=== PATIENT | female | born 1985 | race Caucasian/White ===

== ENCOUNTER 2017-04-05 19:42 | Emergency (ER) | payer MEDICAID ==
[~2017-04-05] VITALS: Ht 177.8 cm; Wt 96.6 kg
[~2017-04-05 19:42] MED LIST: IBP800T PO; INSU100I14 SQ; INSU100I23 SC; INSU100I29 SC; LEVE1U SQ; LEVO500T2 PO; LEVO500T80 PO; PREN1TAB14 PO; RT-ALBUINH INH
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
[2017-04-05 22:25] LABS: BASOPHILS # (AUTO) 0.1 10^3/uL (0.0-0.1); BASOPHILS % (AUTO) 0 % (0-10); EOSINOPHILS # (AUTO) 0.3 10^3/uL (0.0-0.3); EOSINOPHILS % (AUTO) 2 % (0-10); LYMPHOCYTES # (AUTO) 3.4 X 10^3 (1.0-4.0); LYMPHOCYTES % (AUTO) 19 % (12-44); MEAN CORPUSCULAR HEMOGLOBIN 29 PG (25-34); MEAN CORPUSCULAR HGB CONC 35 G/DL (32-36); MEAN CORPUSCULAR VOLUME 84 FL (80-99); MEAN PLATELET VOLUME 9.9 FL (7.4-10.4); MONOCYTES % (AUTO) 6 % (0-12); NEUTROPHILS # (AUTO) 13.2 X 10^3 (1.8-7.8); NEUTROPHILS % (AUTO) 74 % (42-75); PLATELET COUNT 326 10^3/uL (130-400); RED BLOOD COUNT 5.16 10^6/uL (4.35-5.85); RED CELL DISTRIBUTION WIDTH 12.5 % (10.0-14.5); WHITE BLOOD COUNT 17.9 10^3/uL (4.3-11.0)
[2017-04-05 22:43] LABS: ALANINE AMINOTRANSFERASE 20 U/L (0-55); ALBUMIN 4.3 GM/DL (3.2-4.5); ANION GAP 14 MMOL/L (5-14); ASPARTATE AMINO TRANSFERASE 12 U/L (5-34); BAND NEUTROPHILS 2 %; BASOPHILS % (MANUAL) 1 %; BILIRUBIN,TOTAL 0.2 MG/DL (0.1-1.0); BLOOD UREA NITROGEN 11 MG/DL (7-18); BUN/CREATININE RATIO 15; CALCIUM 10.1 MG/DL (8.5-10.1); CARBON DIOXIDE 22 MMOL/L (21-32); CHLORIDE 103 MMOL/L (98-107); CREATININE SERUM 0.73 MG/DL (0.60-1.30); EOSINOPHILS % (MANUAL) 3 %; GFR ESTIMATED > 60; GLUCOSE 94 MG/DL (70-105); LYMPHOCYTES % (MANUAL) 20 %; NEUTROPHILS % (MANUAL) 72 %; POTASSIUM 3.4 MMOL/L (3.6-5.0); SODIUM 139 MMOL/L (135-145); TOTAL PROTEIN 7.8 GM/DL (6.4-8.2)
[2017-04-05 23:02] LABS: BILIRUBIN,URINE NEGATIVE (NEGATIVE); KETONES,URINE 1+ (NEGATIVE); LEUKOCYTE ESTERASE ,URINE 2+ (NEGATIVE); NITRITE,URINE NEGATIVE (NEGATIVE); PH,URINE 6 (5-9); PROTEIN,URINE 2+ (NEGATIVE); UROBILINOGEN,URINE 4 MG/DL (NORMAL)
[2017-04-06] MEDS ORDERED: CIPR500T4 PO (00:16)
[2017-04-06] MEDS ORDERED: LEVOFLOXACIN 750 MG TAB (LEVAQUIN) PO ONE (00:30)
[2017-04-06 00:36] VITALS: BP 116/80
== END 2017-04-06 00:40 | disposition home or self-care (01) ==
LOC: EDUNIT# 19:42 → ER 19:45
DX: N39.0 Urinary tract infection, site not specified (principal); E86.9 Volume depletion, unspecified; J45.909 Unspecified asthma, uncomplicated; E78.00 Pure hypercholesterolemia, unspecified; I10 Essential (primary) hypertension; E11.9 Type 2 diabetes mellitus without complications; F17.210 Nicotine dependence, cigarettes, uncomplicated; Z94.5 Skin transplant status; Z98.51 Tubal ligation status; Z87.59 Personal history of other complications of pregnancy, childbirth and the puerperium; Z79.4 Long term (current) use of insulin; Z79.84 Long term (current) use of oral hypoglycemic drugs
CPT/HCPCS: 36415; 80053; 81000; 84703; 85007; 85027; 86141; 87070; 87088; 87210; 87491; 87591

== ENCOUNTER 2017-12-26 09:08 | Inpatient (IN) | payer MEDICAID ==
[~2017-12-26] VITALS: Ht 177.8 cm; Wt 95.3 kg
[~2017-12-26 09:08] MED LIST changes: +CIPR500T4 PO
[2017-12-26] MEDS ORDERED: LEVO750T39 PO (09:15)
[2017-12-26] MEDS ORDERED: ONDA4TAB10 (09:15)
[2017-12-26] MEDS ORDERED: NS IV 1000 ML 1,000 ML IV ONE (09:16)
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
[2017-12-26 09:38] LABS: BASOPHILS % (AUTO) 0 % (0-10); EOSINOPHILS % (AUTO) 0 % (0-10); HEMATOCRIT 40 % (35-52); HEMOGLOBIN 13.8 G/DL (11.5-16.0); LYMPHOCYTES # (AUTO) 0.4 X 10^3 (1.0-4.0); LYMPHOCYTES % (AUTO) 4 % (12-44); MEAN CORPUSCULAR HEMOGLOBIN 29 PG (25-34); MEAN CORPUSCULAR HGB CONC 35 G/DL (32-36); MEAN CORPUSCULAR VOLUME 84 FL (80-99); MONOCYTES # (AUTO) 0.6 X 10^3 (0.0-1.0); MONOCYTES % (AUTO) 5 % (0-12); NEUTROPHILS % (AUTO) 91 % (42-75); PLATELET COUNT 188 10^3/uL (130-400); RED BLOOD COUNT 4.74 10^6/uL (4.35-5.85); RED CELL DISTRIBUTION WIDTH 12.8 % (10.0-14.5); WHITE BLOOD COUNT 12.1 10^3/uL (4.3-11.0)
[2017-12-26 09:48] LABS: INR 1.2 (0.8-1.4); PROTHROMBIN TIME PATIENT 14.9 SEC (12.2-14.7)
[2017-12-26 09:51] LABS: BILIRUBIN,URINE NEGATIVE (NEGATIVE); CLARITY,URINE SLIGHTLY CLOUDY; COLOR,URINE YELLOW; GLUCOSE, URINE (UA) 4+ (NEGATIVE); KETONES,URINE 3+ (NEGATIVE); LEUKOCYTE ESTERASE ,URINE 2+ (NEGATIVE); NITRITE,URINE NEGATIVE (NEGATIVE); PH,URINE 6 (5-9); PROTEIN,URINE NEGATIVE (NEGATIVE); UROBILINOGEN,URINE NORMAL (NORMAL)
[2017-12-26 09:55] LABS: ALANINE AMINOTRANSFERASE 22 U/L (0-55); ALBUMIN 3.9 GM/DL (3.2-4.5); ALKALINE PHOSPHATASE 94 U/L (40-136); BUN/CREATININE RATIO 16; CALCIUM 9.3 MG/DL (8.5-10.1); CARBON DIOXIDE 23 MMOL/L (21-32); CHLORIDE 94 MMOL/L (98-107); CREATININE SERUM 0.92 MG/DL (0.60-1.30); GFR ESTIMATED > 60; GLUCOSE 291 MG/DL (70-105); POTASSIUM 4.2 MMOL/L (3.6-5.0); SODIUM 130 MMOL/L (135-145); TOTAL PROTEIN 7.5 GM/DL (6.4-8.2)
[2017-12-26] MEDS ORDERED: inSUlin (REGULAR) HUMAN 1 UNIT/0.01 ML (CHARGE PER UNIT) IV STA (10:04)
[2017-12-26 10:21] LABS: BAND NEUTROPHILS 26 %; BASOPHILS % (MANUAL) 0 %; EOSINOPHILS % (MANUAL) 0 %; LYMPHOCYTES % (MANUAL) 1 %; MONOCYTES % (MANUAL) 5 %; NEUTROPHILS % (MANUAL) 68 %; RBC MORPH NORMAL
--- NOTE | 2017-12-26 10:22 | Diagnostic Imaging Report ---
INDICATION: Cough, nausea, emesis and dizziness. Portable upright AP view of the chest is obtained. Comparison is made to study of 11/21/2015. FINDINGS: Heart size and pulmonary vascularity are within normal limits, and the lungs are clear, bilaterally. IMPRESSION: Unremarkable chest. Dictated by: Dictated on workstation # [id number]
[2017-12-26 10:31] LABS: BACTERIA,URINE TRACE /HPF; RBC,URINE 0-2 /HPF; YEAST,URINE FEW /HPF
[2017-12-26] MEDS ORDERED: MILK OF MAGNESIA 400 MG/5 ML 30 ML UDC PO PRN (12:15)
[2017-12-26] MEDS ORDERED: MELATONIN 3 MG TABLET PO PRN (12:15)
[2017-12-26] MEDS ORDERED: ONDANSETRON 4 MG/2 ML (SDV) Z0FRAN IV PRN (12:15)
[2017-12-26] MEDS ORDERED: ANTACID SUSP 30 ML UDC (MYLANTA) PO PRN (12:15)
--- OUTSIDE RECORDS SUMMARY | 2017-12-26 12:17 | XMS REPORT ---
Author Author Jin KATHY [facility] Address [address] [place] [address] Care Team Providers Care Reference Assistant Name Role Phone clintonMARLENA MilliganY Unavailable PROBLEMS Type Condition ICD9-CM Code [id number] Code Onset Dates Condition Status SNOMED Code Problem Depressive disorder, not elsewhere classified 311 Active 10033782 Problem Anxiety state, unspecified 300.00 Active 085050666 Problem Posttraumatic stress disorder 309.81 Active 05258216 Problem Depressive disorder, not elsewhere classified F32.9 Active 21874512 Problem Social phobia F40.10 Active 86092860 Problem Diabetes mellitus without mention of complication, type II or unspecified type, not stated as uncontrolled 250.00 Active 629578862 Problem Diabetes mellitus without mention of complication, type II or unspecified type, uncontrolled 250.02 Active 907449059 Problem Diabetes E11.9 Active 50005724 Problem Major depressive disorder, recurrent episode, moderate 296.32 Active 56615475 Problem Supervision of with other poor obstetric history V23.49 Active Problem Supervision of with history of pre-term labor V23.41 Active 970841623 Problem Previous delivery, unspecified as to episode of care or not applicable 654.20 Active 159283269 Problem Unspecified high-risk V23.9 Active 87946129 Problem Tobacco use disorder complicating , childbirth, or the puerperium, unspecified as to episode of care or not applicable 649.00 Active ALLERGIES No Information SOCIAL HISTORY Never Assessed PLAN OF CARE VITAL SIGNS MEDICATIONS Medication Instructions Dosage Frequency Start Date End Date Duration Status Minipress 2 MG Orally at bedtime 1 capsule 30 days Active RESULTS No Results PROCEDURES No Known procedures IMMUNIZATIONS No Known Immunizations MEDICAL (GENERAL) HISTORY Type Description Date Medical History Depression Medical History Anxiety Medical History Insomnia Medical History Mood Disorder Surgical History C section Surgical History Skin graph Hospitalization History Surgery/Child
--- OUTSIDE RECORDS SUMMARY | 2017-12-26 12:17 | XMS REPORT | Clinical Summary ---
Author Author [facility] Organization [facility] Address Unknown Phone Unavailable Care Team Providers Care Storage Battery Tester Name Role Phone Ian Jason JC PCP Source Comments Some departments are not documenting in the electronic medical record. If you do not see the information that you expected, contact Release of Information in the Health Information Management department at [phone] for further assistance in locating additional records.[facility] Allergies Active Allergy Reactions Severity Noted Date Comments Nitrofurantoin EDEMA Medium 09/01/2017 Monohyd/M-Cryst Metformin DIARRHEA Low 09/01/2017 Penicillins UNKNOWN Low 09/01/2017 Reaction as a child Current Medications Prescription Sig. Disp. Refills Start End Date Status Date lisinopril (PRINIVIL; Take 2.5 mg by mouth Active ZESTRIL) 5 mg tablet daily. estradiol (ESTRACE) 1 mg Take 1 mg by mouth daily. Active tablet fenofibrate Take 48 mg by mouth Active nanocrystallized (TRICOR) daily. Take with food. 48 mg tablet busPIRone (BUSPAR) 10 mg Take 10 mg by mouth three Active tablet times daily. simvastatin (ZOCOR) 20 mg Take 20 mg by mouth at Active tablet bedtime daily. sitaGLIPtin (JANUVIA) 100 Take 100 mg by mouth Active mg tab tablet daily. exenatide microspheres Inject 2 mg under the Active ER(+) (BYDUREON) 2 mg skin every 7 days. injection insulin degludec 100 Inject 35 Units under the Active unit/mL (3 mL) inpn skin at bedtime daily. insulin aspart (NOVOLOG Inject 5 Units under the Active FLEXPEN) 100 unit/mL skin three times daily injection PEN with meals. ALPRAZolam (XANAX) 0.5 mg Take 0.5 mg by mouth at Active tablet bedtime as needed for Anxiety. loratadine (CLARITIN) 10 Take 10 mg by mouth every Active mg tablet morning. fluticasone (FLONASE) 50 Apply to each nostril as Active mcg/actuation nasal spray directed daily. Shake bottle gently before using. 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[employer] Pulse 121 09/01/2017 1:12 PM [employer] Temperature - - Respiratory Rate - - Oxygen Saturation - - Inhaled Oxygen - - Concentration Weight 91.9 kg (202 lb 9.6 oz) 09/01/2017 1:12 PM [employer] Height 177.8 cm (5' 10") 09/01/2017 1:12 PM [employer] Body Mass Index 29.07 09/01/2017 1:12 PM 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
--- OUTSIDE RECORDS SUMMARY | 2017-12-26 12:17 | XMS REPORT ---
Author Author KATHY Abdi [facility] Address [address] [place] [address] Care Team Providers Care Garment Turner Name Role Phone clintonChantellJESSMARLENAY Unavailable PROBLEMS Type Condition ICD9-CM Code [id number] Code Onset Dates Condition Status SNOMED Code Problem Posttraumatic stress disorder 309.81 Active 27404232 Problem Diabetes mellitus without mention of complication, type II or unspecified type, uncontrolled 250.02 Active 160509419 Problem Anxiety state, unspecified 300.00 Active 273027150 Problem Post-traumatic stress disorder, chronic F43.12 Active 29941167 Problem Depressive disorder, not elsewhere classified F32.9 Active 04871352 Problem Major depressive disorder, recurrent episode, moderate 296.32 Active 72599581 Problem Diabetes mellitus without mention of complication, type II or unspecified type, not stated as uncontrolled 250.00 Active 733854604 Problem Social phobia F40.10 Active 27165449 Problem Diabetes E11.9 Active 29426480 Problem Supervision of with history of pre-term labor V23.41 Active 160503646 Problem Previous delivery, unspecified as to episode of care or not applicable 654.20 Active 068207756 Problem Unspecified high-risk V23.9 Active 57237125 Problem Tobacco use disorder complicating , childbirth, or the puerperium, unspecified as to episode of care or not applicable 649.00 Active Problem Supervision of with other poor obstetric history V23.49 Active Problem Depressive disorder, not elsewhere classified 311 Active 98758780 ALLERGIES No Information SOCIAL HISTORY Never Assessed PLAN OF CARE VITAL SIGNS MEDICATIONS Medication Instructions Dosage Frequency Start Date End Date Duration Status Xanax 0.5 MG Orally Twice a day prn anxiety 1 tablet 30 days Active RESULTS No Results PROCEDURES No Known procedures IMMUNIZATIONS No Known Immunizations MEDICAL (GENERAL) HISTORY Type Description Date Medical History Depression Medical History Anxiety Medical History Insomnia Medical History Mood Disorder Medical History DM II Medical History hypercholesterolemia Surgical History C section Surgical History Skin graph Surgical History hysterectomy 04/2017 Hospitalization History Surgery/Child
--- OUTSIDE RECORDS SUMMARY | 2017-12-26 12:17 | XMS REPORT ---
Author Author Jin KATHY [facility] Address [address] [place] [address] Care Team Providers Care Airport Operations Officer Name Role Phone clintonMARLENA MilliganY Unavailable PROBLEMS Type Condition ICD9-CM Code [id number] Code Onset Dates Condition Status SNOMED Code Problem Depressive disorder, not elsewhere classified 311 Active 45122822 Problem Anxiety state, unspecified 300.00 Active 456738330 Problem Posttraumatic stress disorder 309.81 Active 69371499 Problem Depressive disorder, not elsewhere classified F32.9 Active 90822270 Problem Social phobia F40.10 Active 56220104 Problem Diabetes mellitus without mention of complication, type II or unspecified type, not stated as uncontrolled 250.00 Active 779482674 Problem Diabetes mellitus without mention of complication, type II or unspecified type, uncontrolled 250.02 Active 327496555 Problem Diabetes E11.9 Active 37770137 Problem Major depressive disorder, recurrent episode, moderate 296.32 Active 85645484 Problem Supervision of with other poor obstetric history V23.49 Active Problem Supervision of with history of pre-term labor V23.41 Active 804689905 Problem Previous delivery, unspecified as to episode of care or not applicable 654.20 Active 909356225 Problem Unspecified high-risk V23.9 Active 34030170 Problem Tobacco use disorder complicating , childbirth, or the puerperium, unspecified as to episode of care or not applicable 649.00 Active ALLERGIES Substance Reaction Event Type Date Status Penicillamine Unknown Drug Allergy Sep, Active Macrobid Unknown Drug Allergy Sep, Active Metformin Unknown Drug Allergy Sep, Active Amaryl 4 Mg Tablet diahrea Non Drug Allergy Sep, Active Zoloft 50 Mg Tablet headache Non Drug Allergy Sep, Active SOCIAL HISTORY Never Assessed PLAN OF CARE Activity Details Follow Up 3 Months Reason: VITAL SIGNS Height 69 in 2016-10-03 Weight 213.1 lbs 2016-10-03 Heart Rate 108 bpm 2016-10-03 Respiratory Rate 20 2016-10-03 BMI 31.47 kg/m2 2016-10-03 Blood pressure systolic 112 mmHg 2016-10-03 Blood pressure diastolic 84 mmHg 2016-10-03 MEDICATIONS Medication Instructions Dosage Frequency Start Date End Date Duration Status Bydureon 2 MG Subcutaneous once weekly I injection Active Xanax 0.5 MG Orally Twice a day prn anxiety 1 tablet 30 days Active Neurontin 100 MG Orally 2 times a day 1 capsule 12h 30 days Active Rexulti 1 MG Orally Once a day 1 tablet 24h 30 days Active BusPIRone HCl 10 MG Orally 2 times a day 1 tablet 12h 30 days Active NovoLog Mix 70/30 (70-30) 100 UNIT/ML Active Simvastatin 20 MG Orally Once a day 1 tablet in the evening 24h Active Levemir 100 UNIT/ML Subcutaneous 2 times a day 50 units 12h Active Januvia 100 MG Orally Once a day 1 tablet 24h Active Minipress 2 MG Orally at bedtime 1 capsule Active RESULTS No Results PROCEDURES No Known procedures IMMUNIZATIONS No Known Immunizations MEDICAL (GENERAL) HISTORY Type Description Date Medical History Depression Medical History Anxiety Medical History Insomnia Medical History Mood Disorder Surgical History C section Surgical History Skin graph Hospitalization History Surgery/Child
--- OUTSIDE RECORDS SUMMARY | 2017-12-26 12:17 | XMS REPORT | Continuity of Care Document ---
Author Author [employer] [facility] Address Unknown Phone Unavailable Care Team Providers Care Visual Merchandise Manager Name Role Phone [employer] Unavailable Unavailable Problems Medications Allergies, Adverse Reactions, Alerts Immunizations Results Vital Signs Encounters Location Location Details Encounter Type Encounter Number Reason For Visit Attending Provider ADM Date DC Date Status Source O STEPHEN IGLESIAS 12/31/2017 Active [facility] Procedures Plan of Care Social History Assessment and Plan Family History Advance Directives Functional Status
--- OUTSIDE RECORDS SUMMARY | 2017-12-26 12:18 | XMS REPORT ---
Author Author BARBIE LOTT Organization [facility] Address [address] [place] [address] Care Team Providers Care Boot And Shoe Repairman Name Role Phone BARBIE LOTT Unavailable PROBLEMS Type Condition ICD9-CM Code [id number] Code Onset Dates Condition Status SNOMED Code Problem Depressive disorder, not elsewhere classified 311 Active 17969554 Problem Anxiety state, unspecified 300.00 Active 095385030 Problem Posttraumatic stress disorder 309.81 Active 89088171 Problem Depressive disorder, not elsewhere classified F32.9 Active 22788366 Problem Social phobia F40.10 Active 18165275 Problem Diabetes mellitus without mention of complication, type II or unspecified type, not stated as uncontrolled 250.00 Active 941182467 Problem Diabetes mellitus without mention of complication, type II or unspecified type, uncontrolled 250.02 Active 439803291 Problem Diabetes E11.9 Active 23832233 Problem Major depressive disorder, recurrent episode, moderate 296.32 Active 67028235 Problem Supervision of with other poor obstetric history V23.49 Active Problem Supervision of with history of pre-term labor V23.41 Active 005284684 Problem Previous delivery, unspecified as to episode of care or not applicable 654.20 Active 211149092 Problem Unspecified high-risk V23.9 Active 39494569 Problem Tobacco use disorder complicating , childbirth, or the puerperium, unspecified as to episode of care or not applicable 649.00 Active ALLERGIES Unknown Allergies SOCIAL HISTORY No smoking Hx information available PLAN OF CARE VITAL SIGNS MEDICATIONS Medication Instructions Dosage Frequency Start Date End Date Duration Status Minipress Active BusPIRone HCl Active Neurontin Active Xanax Active Rexulti Active RESULTS No Results PROCEDURES Procedure Date Ordered Related Diagnosis Body Site Psychotherapy, patient &/family, 30 minutes, established patient Sep 19, 2016 IMMUNIZATIONS No Known Immunizations
--- OUTSIDE RECORDS SUMMARY | 2017-12-26 12:18 | XMS REPORT ---
Author Author Jin KATHY [facility] Address [address] [place] [address] Care Team Providers Care C.O.D. Audit Clerk Name Role Phone KATHY Abdi Unavailable PROBLEMS Type Condition ICD9-CM Code KTU40-CN Code Onset Dates Condition Status SNOMED Code Problem Posttraumatic stress disorder 309.81 Active 98963833 Problem Diabetes mellitus without mention of complication, type II or unspecified type, uncontrolled 250.02 Active 636557725 Problem Anxiety state, unspecified 300.00 Active 770741489 Problem Post-traumatic stress disorder, chronic F43.12 Active 05651872 Problem Depressive disorder, not elsewhere classified F32.9 Active 82492424 Problem Major depressive disorder, recurrent episode, moderate 296.32 Active 69416333 Problem Diabetes mellitus without mention of complication, type II or unspecified type, not stated as uncontrolled 250.00 Active 307048400 Problem Social phobia F40.10 Active 51885423 Problem Diabetes E11.9 Active 88478290 Problem Supervision of with history of pre-term labor V23.41 Active 342271929 Problem Previous delivery, unspecified as to episode of care or not applicable 654.20 Active 614260565 Problem Unspecified high-risk V23.9 Active 03334740 Problem Tobacco use disorder complicating , childbirth, or the puerperium, unspecified as to episode of care or not applicable 649.00 Active [id number] Problem Supervision of with other poor obstetric history V23.49 Active 696935031 Problem Depressive disorder, not elsewhere classified 311 Active 67208662 ALLERGIES Substance Reaction Event Type Date Status Penicillamine Unknown Drug Allergy Jan, Active Macrobid Unknown Drug Allergy Jan, Active Metformin Unknown Drug Allergy Jan, Active Amaryl 4 Mg Tablet diahrea Non Drug Allergy Jan, Active Zoloft 50 Mg Tablet headache Non Drug Allergy Jan, Active ENCOUNTERS Encounter Location Date Diagnosis [facility] [address] [address] Oct, [facility] [address] Jun, [facility] [address] [address] May, Post-traumatic stress disorder, chronic F43.12 [facility] [id number] [place] [address]- [address]78 Jan, Chronic posttraumatic stress disorder F43.12 [facility] [address] [address] Jan, [facility] [id number] [place] [address] 681469- 2086 December, [facility] [id number] [place] [address]- 8647 December, Chronic posttraumatic stress disorder F43.12 [facility] [address] [address] December, [facility] [id number] [place] [address] 052875- [address]40 Nov, [facility] [address] [address] Sep, Chronic posttraumatic stress disorder F43.12 [facility] [address] [address] Sep, Chronic posttraumatic stress disorder F43.12 [facility] [address] [address] Aug, Social phobia F40.10 and Depressive disorder, not elsewhere classified F32.9 [facility] [address] [address] 31 Oct, 2015 [facility] [address] [address] 14 Oct, 2015 Diabetes E11.9 [facility] [place] [facility] [address] [id number] [place] [address] 6[address] 14 Nov, 2014 [facility] [place] [facility] [address] [id number] [place] [address]- 2111 13 Nov, 2014 [facility] [place] [facility] [address] [facility] [id number] [place] [address]- 5410 18 Oct, 2014 [facility] [place] [facility] [address] [id number] [place] [address]- 1238 18 Oct, 2014 [facility] [place] [facility] [address] [id number] [place] [address]- 2281 13 Oct, 2014 [facility] [place] [facility] [address] [facility] [id number] [place] [address]- 0266 13 Oct, 2014 [facility] [place] [facility] [address] [facility] [id number] [place] [address]- 8343 11 Oct, 2014 [facility] [place] [facility] [address] [facility] [id number] [place] [address]- 4424 11 Oct, 2014 [facility] [place] [facility] [address] [facility] [id number] [place] [address]- 0809 17 Sep, 2014 [facility] [place] [facility] [address] [facility] [id number] [place] [address]- 3344 17 Sep, 2014 [facility] [place] [facility] [address] [facility] [id number] [address] 4[address] 13 Sep, 2014 [facility] [place] [facility] [address] [facility] [id number] [address]- 3[address] 13 Sep, 2014 [facility] [place] [facility] [address] [facility] [id number] [place] [address]- 7322 11 Sep, 2014 [facility] [place] [facility] [address] [facility] [id number] [place] [address]- 3632 11 Sep, 2014 [facility] [place] [facility] [address] [facility] [id number] [place] [address]- 1029 03 Sep, 2014 [facility] [place] [facility] [address] [id number] [place] [address]- 4376 03 Sep, 2014 [facility] [place] [facility] [address] [id number] [place] [address]- 6726 Aug, [facility] [place] [facility] [address] [id number] [place] [address]- 4816 Aug, [facility] [place] [facility] [address] [id number] [place] [address]- 7467 16 Aug, 2014 [facility] [place] [facility] [address] [id number] [place] [address]- 3955 16 Aug, 2014 [facility] [place] [facility] [address] [id number] [place] [address]- 7870 Aug, [facility] [place] [facility] [address] [id number] [place] [address]- 6472 Aug, [facility] [place] [facility] [address] [id number] [place] [address]- 9323 Aug, [facility] [place] [facility] [address] [id number] [place] [address]- 6207 Aug, [facility] [place] [facility] [address] [id number] [place] [address]- 0446 Aug, [facility] [place] [facility] [address] [id number] [place] [address]- 7759 Aug, [facility] [place] [facility] [address] [id number] [place] [address]- 8061 Aug, [facility] [place] [facility] [address] [id number] [place] [address]- 8238 Aug, [facility] [place] [facility] [address] [id number] [place] [address]- 0279 Jul, [facility] [place] [facility] [address] [id number] [place] [address]- 3936 Jul, [facility] [place] [facility] [address] [id number] [place] [address]- 4485 Jul, [facility] [place] [facility] [address] [id number] [place] [address]- 6291 Jul, [facility] [place] [facility] [address] [id number] [place] [address]- 2640 Jun, [facility] [place] [facility] [address] [id number] [place] [address] Jun, [facility] [place] [facility] [address] [id number] [place] [address]- 1049 Jun, [facility] [place] [facility] [address] [id number] [place] [address]- 8016 Jun, [facility] [place] [facility] [address] [id number] [place] [address]- 0985 Jun, [facility] [place] [facility] [address] [id number] [place] [address]- 3462 May, [facility] [place] [facility] [address] [id number] [place] [address]- 7605 15 May, 2014 [facility] [place] [facility] [address] [id number] [place] [address]- 1110 May, [facility] [place] [facility] [address] [id number] [address]- 0323 May, [facility] [place] [facility] [address] [id number] [address]- 5286 10 May, 2014 [facility] [place] [facility] [address] [id number] [place] [address]- 9342 10 May, 2014 [facility] [place] [facility] [address] [id number] [place] [address]- 0854 10 May, 2014 [facility] [place] [facility] [address] [id number] [place] [address]- 7546 10 May, 2014 [facility] [place] [facility] [address] [id number] [place] [address]- 2899 09 May, 2014 [facility] [place] [facility] [address] [id number] [place] [address]- 3873 May, [facility] [place] [facility] [address] [id number] [place] [address]- 0935 Apr, [facility] [place] [facility] [address] [id number] [place] [address]- 7756 Apr, [facility] [place] [facility] [address] [id number] [place] [address]- 4581 Mar, [facility] [place] [facility] [address] [id number] [place] [address]- 8366 Mar, [facility] [place] [facility] [address] [id number] [place] [address]- 2780 Feb, [facility] [place] [facility] [address] [id number] [place] [address]- 0537 Feb, [facility] [place] [facility] [address] [id number] [place] [address]- 2961 Feb, [facility] [place] [facility] [address] [id number] [place] [address]- 3812 Feb, [facility] [place] [facility] [address] [id number] [place] [address]- 1815 Feb, [facility] [place] [facility] [address] [id number] [place] [address]- 5807 Feb, [facility] [place] [facility] [address] [id number] [place] [address]- 1937 Jan, [facility] [place] [facility] [address] [id number] [place] [address]- 1418 Jan, [facility] [place] [facility] [address] [id number] [place] [address]- 2089 Jan, [facility] [place] [facility] [address] [id number] [place] [address]- 8171 Jan, [facility] [place] [facility] [address] [id number] [place] [address]- 1890 December, [facility] [place] [facility] [address] [id number] [place] [address]- 8645 December, [facility] [place] [facility] [address] [id number] [place] [address]- 5525 December, [facility] [place] [facility] [address] [id number] [place] [address]- 2908 Nov, [facility] [place] [facility] [address] [id number] [place] [address]- 0672 Oct, [facility] [place] [facility] [address] [id number] [place] [address]- 6647 Oct, [facility] [place] [facility] [address] [id number] [place] [address]- 6120 Oct, [facility] [place] [facility] [address] [id number] [place] [address]- 9265 Oct, [facility] [place] [facility] [address] [id number] [place] [address]- 1951 Oct, [facility] [place] [facility] [address] [id number] [place] [address]- 8967 Oct, [facility] [place] [facility] [address] [id number] [place] [address]- 3238 Oct, [facility] [place] [facility] [address] [id number] [place] [address]- 2404 Oct, [facility] [place] [facility] [address] [id number] [place] [address]- 4434 Oct, [facility] [place] [facility] [address] [id number] [place] [address]- 6721 Sep, [facility] [place] [facility] [address] [id number] [place] [address]- 8008 Sep, [facility] [place] [facility] [address] [id number] [place] [address]- 0233 24 Sep, 2013 [facility] [place] [facility] [address] [id number] [place] [address]- 6325 Sep, [facility] [address] [id number] [place] [address]- 5276 Sep, [facility] [place] [facility] [address] [id number] [place] [address]- 9978 Aug, [facility] [place] [facility] [address] [id number] [place] [address]- 6653 Aug, [facility] [place] [facility] [address] [id number] [place] [address]- 5729 Aug, [facility] [place] [facility] [address] [id number] [place] [address]- 8242 Aug, [facility] [address] [id number] [place] [address]- 4079 Jul, [facility] [address] [id number] [place] [address]- 9019 Jul, [facility] [place] [facility] [address] [id number] [place] [address]- 4340 Jul, [facility] [address] [id number] [place] [address]- 2168 Jul, [facility] [place] [facility] [address] [facility] [id number] [place] [address]- 5254 Jul, [facility] [address] [id number] [place] [address]- 3915 Jul, [facility] [place] [facility] [address] [id number] [place] [address]- 6113 Jul, [facility] [place] [facility] [address] [id number] [place] [address]- 8039 Jul, [facility] [place] [facility] [address] [id number] [place] [address]- 9067 Jul, [facility] [place] [facility] [address] [id number] [place] [address]- 6892 Jul, [facility] [place] [facility] [address] [id number] [place] [address]- 0429 Jun, [facility] [place] [facility] [address] [id number] [place] [address]- 3348 Jun, [facility] [place] [facility] [address] [id number] [place] [address]- 0241 Jun, [facility] [place] [facility] [address] [id number] [place] [address]- 5950 Jun, [facility] [place] [facility] [address] [id number] [place] [address]- 3377 Jun, [facility] [place] [facility] [address] [id number] [place] [address]- 8008 Jun, [facility] [place] [facility] [address] [id number] [place] [address]- 5943 Jun, [facility] [place] [facility] [address] [id number] [place] [address]- 0707 Jun, [facility] [place] [facility] [address] [id number] [place] [address]- 3827 Jun, [facility] [place] [facility] [address] [id number] [place] [address]- 0556 Jun, [facility] [place] [facility] [address] [id number] [place] [address]- 9866 Jun, [facility] [place] [facility] [address] [id number] [place] [address]- 9374 Jun, [facility] [place] [facility] [address] [id number] [place] [address]- 8937 May, [facility] [place] [facility] [address] [id number] [place] [address]- 2906 29 May, 2013 [facility] [place] [facility] [address] [id number] [place] [address]- 2973 15 May, 2013 [facility] [place] [facility] [address] [id number] [place] [address]- 0565 15 May, 2013 [facility] [place] [facility] [address] [id number] [place] [address]- 4307 14 May, 2013 [facility] [place] [facility] [address] [id number] [place] [address]- 1155 May, [facility] [place] [facility] [address] [id number] [place] [address]- 6745 May, [facility] [place] [facility] [address] [id number] [place] [address]- 5741 Apr, [facility] [place] [facility] [address] [id number] [place] [address]- 2181 Mar, [facility] [place] [facility] [address] [id number] [place] [address]- 9383 Mar, [facility] [place] [facility] [address] [id number] [place] [address]- 5371 Mar, [facility] [place] [facility] [address] [id number] [place] [address]- 6506 Feb, [facility] [place] [facility] [address] [id number] [place] [address]- 4411 Feb, [facility] [place] [facility] [address] [id number] [place] [address]- 5839 Feb, [facility] [place] [facility] [address] [id number] [address]- 4763 Feb, [facility] [place] [facility] [address] [id number] [place] [address]- 8671 Jan, [facility] [place] [facility] [address] [id number] [place] [address]- 7606 Jan, [facility] [place] [facility] [address] [id number] [address]- 3772 December, [facility] [place] [facility] [address] [id number] [place] [address]- 2545 December, [facility] [place] [facility] [address] [id number] [place] [address]- 7253 03 Nov, 2012 [facility] [address] [id number] [place] [address]- 7014 Aug, [facility] [address] [id number] [place] [address]- 4710 Aug, [facility] [address] [id number] [place] [address]- 2723 Aug, [facility] [address] [id number] [place] [address]- 6988 Aug, [facility] [address] [id number] [place] [address]- 3013 Aug, [facility] [address] [id number] [place] [address]- 4612 Aug, [facility] [address] [id number] [place] [address]- 1842 Aug, [facility] [address] [id number] [place] [address]- 8558 Aug, [facility] [address] [id number] [place] [address]- 6076 Jul, [facility] [address] [id number] [place] [address]- 8267 Jul, [facility] [address] [id number] [place] [address]- 3886 Jul, [facility] [place] [facility] [address] [id number] [place] [address]- 9579 Jul, [facility] [place] [facility] [address] [id number] [place] [address]- 8823 Jul, [facility] [place] [facility] [address] [id number] [place] [address]- 1466 Jul, [facility] [address] [id number] [place] [address]- 0365 Jun, [facility] [place] [facility] [address] [id number] [place] [address]- 3641 Jun, [facility] [place] [facility] [address] [id number] [place] [address]- 0885 Jun, [facility] [place] [facility] [address] [id number] [place] [address]- 9693 Jun, [facility] [place] [facility] [address] [id number] [place] [address], [place] [address]- 2892 Jun, [facility] [place] [facility] [address] [id number] [place] [address]- 1837 Jun, [facility] [place] [facility] [address] [id number] [place] [address]- 7772 May, [facility] [place] [facility] [address] [id number] [place] [address]- 8264 May, [facility] [place] [facility] [address] [id number] [place] [address]- 7088 May, [facility] [place] [facility] [address] [id number] [place] [address]- 0645 May, [facility] [place] [facility] [address] [id number] [place] [address]- 0804 May, [facility] [place] [facility] [address] [id number] [place] [address]- 4544 May, [facility] [place] [facility] [address] [id number] [place] [address]- 1035 May, [facility] [place] [facility] [address] [id number] [place] [address] May, [facility] [place] [facility] [address] [id number] [place] [address]- 6747 December, [facility] [place] [facility] [address] [id number] [place] [address]- 0530 December, [facility] [place] [facility] [address] [id number] [place] [address]- 0879 Aug, [facility] [address] [facility] [id number] [address]- 3875 Aug, [facility] [address] [facility] [id number] [address]- 5416 Aug, [facility] [address] [facility] [id number] [address] Aug, [facility] [address] [facility] [id number] [place] [address] Jun, [facility] [address] [facility] [id number] [place] [address] May, [facility] [address] [facility] [id number] [address] Jun, IMMUNIZATIONS No Known Immunizations SOCIAL HISTORY Never Assessed REASON FOR VISIT f/mira Dobbs MA PLAN OF CARE Activity Details Follow Up 3 Months with new provider Reason: VITAL SIGNS Height 69 in 2017-02-06 Weight 213.9 lbs 2017-02-06 Heart Rate 100 bpm 2017-02-06 Respiratory Rate 20 2017-02-06 BMI 31.58 kg/m2 2017-02-06 Blood pressure systolic 136 mmHg 2017-02-06 Blood pressure diastolic 86 mmHg 2017-02-06 MEDICATIONS Medication Instructions Dosage Frequency Start Date End Date Duration Status Simvastatin 20 MG Orally Once a day 1 tablet in the evening 24h Active NovoLog Mix 70/30 (70-30) 100 UNIT/ML Subcutaneous 3 times a day Sliding Scale 8h Active Januvia 100 MG Orally Once a day 1 tablet 24h Active Minipress 2 MG Orally at bedtime 1 capsule Active OneTouch Ultra Test - TEST FOUR TIMES A DAY 25 Active Test strips Test Strips ICD10- E11.9 4 times a day test blood sugar 6h Oct, Active Blood Glucose Monitor System 1 glucometer ICD10- E11.9 4 times a day test blood sugar 6h Oct, Active Neurontin 100 MG Orally 2 times a day 1 capsule 12h 30 days Active Bydureon 2 MG Subcutaneous once weekly I injection Active Xanax 0.5 MG Orally Twice a day prn anxiety 1 tablet 30 days Active BusPIRone HCl 10 MG Orally 2 times a day 1 tablet 12h 30 days Active Toharika SoloStar 300 UNIT/ML Subcutaneous Once a day 30 units 24h Active RESULTS No Results PROCEDURES No Known procedures INSTRUCTIONS MEDICATIONS ADMINISTERED No Known Medications MEDICAL (GENERAL) HISTORY Type Description Date Medical History Depression Medical History Anxiety Medical History Insomnia Medical History Mood Disorder Medical History DM II Medical History hypercholesterolemia Surgical History C section Surgical History Skin graph Surgical History hysterectomy 04/2017 Hospitalization History Surgery/Child
--- OUTSIDE RECORDS SUMMARY | 2017-12-26 12:19 | XMS REPORT | Continuity of Care Document ---
Author Author Formerly [facility] Address Unknown Phone Unavailable Allergies Active Description Code Type Severity Reaction Onset Reported/Identified Relationship to Patient Clinical Status Yes Macrobid Drug Allergy N/A N/A 01/25/2010 Yes Penicillins Drug Allergy N/A N/A 01/25/2010 Yes Macrobid Drug Allergy 01/25/2010 Yes Penicillins Drug Allergy 01/25/2010 Yes Amaryl 4 mg Tablet Drug Allergy N/A N/A 05/29/2012 Yes Amaryl 4 mg Tablet Drug Allergy 05/29/2012 Yes metformin Drug Allergy N/A N/A 07/03/2012 Yes metformin Drug Allergy 07/03/2012 Yes metformin [id number] Drug Allergy Mild DIARRHEA 10/09/2012 Yes Zoloft 50 mg tablet Drug Allergy N/A N/A 06/07/2013 Yes glimepiride [id number] Drug Allergy Unknown DIARRHEA 10/25/2015 Yes nitrofurantoin [id number] Drug Allergy Severe LOCK JAW 04/05/2017 Yes Nitrofurantoin Macrocrystal [id number] Drug Allergy Severe LOCK JAW 04/05 Yes Penicillins [id number] Drug Allergy Severe EDEMA 04/05/2017 Medications There is no data. Problems Date Dx Coded Attending Type Code Diagnosis Diagnosed By 01/25/2010 MARK BISWAS MD 250.02 DIABETES II UNCONTROLLED 01/25/2010 250.02 DIABETES II UNCONTROLLED 01/25/2010 250.02 DIABETES II UNCONTROLLED 01/25/2010 WENDIE WESTFALL DO 250.02 Diabetes Ii Uncontrolled 01/25/2010 250.02 Diabetes Ii Uncontrolled 01/25/2010 250.02 Diabetes Ii Uncontrolled 01/25/2010 250.02 Diabetes Ii Uncontrolled 01/25/2010 250.02 Diabetes Ii Uncontrolled 01/25/2010 250.02 Diabetes Ii Uncontrolled 01/25/2010 MARK BISWAS MD 250.02 DIABETES II UNCONTROLLED 01/25/2010 MARK BISWAS MD 250.02 Diabetes Ii Uncontrolled 01/25/2010 MARK BISWAS MD 250.02 Diabetes Ii Uncontrolled 01/25/2010 ZULAY GURROLA, MARK 250.02 Diabetes Ii Uncontrolled 01/25/2010 ZULAY GURROLA, MARK 250.02 Diabetes Ii Uncontrolled 01/25/2010 ZULAY GURROLA, MARK 250.02 Diabetes Ii Uncontrolled 01/25/2010 MARK BISWAS MD 250.02 Diabetes Ii Uncontrolled 01/25/2010 ZULAY GURROLA, MARK 250.02 Diabetes Ii Uncontrolled 01/25/2010 ZULAY GURROLA, MARK 250.02 Diabetes Ii Uncontrolled 06/12/2012 MARK BISWAS MD 296.32 MO DEPRESSIVE RECURRENT MODERATE 06/12/2012 MARK BISWAS MD 309.81 AN PTSD 06/12/2012 296.32 MO DEPRESSIVE RECURRENT MODERATE 06/12/2012 309.81 AN PTSD 06/12/2012 296.32 MO DEPRESSIVE RECURRENT MODERATE 06/12/2012 309.81 AN PTSD 06/12/2012 [place] WENDIE DUCKWORTH 296.32 MO DEPRESSIVE RECURRENT MODERATE 06/12/2012 [place] WENDIE DUCKWORTH 309.81 AN PTSD 06/12/2012 296.32 MO DEPRESSIVE RECURRENT MODERATE 06/12/2012 309.81 AN PTSD 06/12/2012 296.32 MO DEPRESSIVE RECURRENT MODERATE 06/12/2012 309.81 AN PTSD 06/12/2012 296.32 MO DEPRESSIVE RECURRENT MODERATE 06/12/2012 309.81 AN PTSD 06/12/2012 296.32 MO DEPRESSIVE RECURRENT MODERATE 06/12/2012 309.81 AN PTSD 06/12/2012 296.32 MO DEPRESSIVE RECURRENT MODERATE 06/12/2012 309.81 AN PTSD 06/12/2012 MARK BISWAS MD 296.32 MO DEPRESSIVE RECURRENT MODERATE 06/12/2012 MARK BISWAS MD 309.81 AN PTSD 06/12/2012 MARK BISWAS MD 296.32 MO DEPRESSIVE RECURRENT MODERATE 06/12/2012 MARK BISWAS MD 309.81 AN PTSD 06/12/2012 MARK BISWAS MD 296.32 MO DEPRESSIVE RECURRENT MODERATE 06/12/2012 MARK BISWAS MD 309.81 AN PTSD 06/12/2012 MARK BISWAS MD 296.32 MO DEPRESSIVE RECURRENT MODERATE 06/12/2012 MARK BISWAS MD 309.81 AN PTSD 06/12/2012 MARK BISWAS MD 296.32 MO DEPRESSIVE RECURRENT MODERATE 06/12/2012 MARK BISWAS MD 309.81 AN PTSD 06/12/2012 MARK BISWAS MD 296.32 MO DEPRESSIVE RECURRENT MODERATE 06/12/2012 MARK BISWAS MD 309.81 AN PTSD 06/12/2012 MARK BISWAS MD 296.32 MO DEPRESSIVE RECURRENT MODERATE 06/12/2012 MARK BISWAS MD 309.81 AN PTSD 06/12/2012 MARK BISWAS MD 296.32 MO DEPRESSIVE RECURRENT MODERATE 06/12/2012 MARK BISWAS MD 309.81 AN PTSD 06/12/2012 MARK BISWAS MD 296.32 MO DEPRESSIVE RECURRENT MODERATE 06/12/2012 MARK BISWAS MD 309.81 AN PTSD 08/28/2012 250.00 DIABETES MELLITUS POORLY CONTROLLED 08/28/2012 300.00 ANXIETY UNSPEC 08/28/2012 649.00 MATERNAL TOBACCO USE COMPLICATING PREG / / PUERPERIUM 08/28/2012 654.20 PREVIOUS C- SECTION 08/28/2012 V23.49 SUPERVISION OF HIGH-RISK WITH OTHER POOR OBSTETRIC HISTORY 08/28/2012 V23.9 , HIGH-RISK (UNSPEC) 08/28/2012 250.00 DIABETES MELLITUS POORLY CONTROLLED 08/28/2012 300.00 ANXIETY UNSPEC 08/28/2012 649.00 MATERNAL TOBACCO USE COMPLICATING PREG / / PUERPERIUM 08/28/2012 654.20 PREVIOUS C- SECTION 08/28/2012 V23.49 SUPERVISION OF HIGH-RISK WITH OTHER POOR OBSTETRIC HISTORY 08/28/2012 V23.9 , HIGH-RISK (UNSPEC) 08/28/2012 WENDIE WESTFALL DO 250.00 DIABETES MELLITUS POORLY CONTROLLED 08/28/2012 WENDIE WESTFALL DO 300.00 ANXIETY UNSPEC 08/28/2012 WENDIE WESTFALL DO 649.00 MATERNAL TOBACCO USE COMPLICATING PREG / / PUERPERIUM 08/28/2012 WENDIE WESTFALL DO 654.20 PREVIOUS 08/28/2012 WENDIE WESTFALL DO V23.49 SUPERVISION OF HIGH-RISK WITH OTHER POOR OBSTETRIC HISTORY 08/28/2012 WENDIE WESTFALL DO V23.9 , HIGH-RISK (UNSPEC) 08/28/2012 250.00 DIABETES MELLITUS POORLY CONTROLLED 08/28/2012 300.00 ANXIETY UNSPEC 08/28/2012 649.00 MATERNAL TOBACCO USE COMPLICATING PREG / / PUERPERIUM 08/28/2012 654.20 PREVIOUS C- SECTION 08/28/2012 V23.49 SUPERVISION OF HIGH-RISK WITH OTHER POOR OBSTETRIC HISTORY 08/28/2012 V23.9 , HIGH-RISK (UNSPEC) 08/28/2012 250.00 DIABETES MELLITUS POORLY CONTROLLED 08/28/2012 300.00 ANXIETY UNSPEC 08/28/2012 649.00 MATERNAL TOBACCO USE COMPLICATING PREG / / PUERPERIUM 08/28/2012 654.20 PREVIOUS C- SECTION 08/28/2012 V23.49 SUPERVISION OF HIGH-RISK WITH OTHER POOR OBSTETRIC HISTORY 08/28/2012 V23.9 , HIGH-RISK (UNSPEC) 08/28/2012 250.00 DIABETES MELLITUS POORLY CONTROLLED 08/28/2012 300.00 ANXIETY UNSPEC 08/28/2012 649.00 MATERNAL TOBACCO USE COMPLICATING PREG / / PUERPERIUM 08/28/2012 654.20 PREVIOUS C- SECTION 08/28/2012 V23.49 SUPERVISION OF HIGH-RISK WITH OTHER POOR OBSTETRIC HISTORY 08/28/2012 V23.9 , HIGH-RISK (UNSPEC) 08/28/2012 250.00 DIABETES MELLITUS POORLY CONTROLLED 08/28/2012 300.00 ANXIETY UNSPEC 08/28/2012 649.00 MATERNAL TOBACCO USE COMPLICATING PREG / / PUERPERIUM 08/28/2012 654.20 PREVIOUS C- SECTION 08/28/2012 V23.49 SUPERVISION OF HIGH-RISK WITH OTHER POOR OBSTETRIC HISTORY 08/28/2012 V23.9 , HIGH-RISK (UNSPEC) 08/28/2012 250.00 DIABETES MELLITUS POORLY CONTROLLED 08/28/2012 300.00 ANXIETY UNSPEC 08/28/2012 649.00 MATERNAL TOBACCO USE COMPLICATING PREG / / PUERPERIUM 08/28/2012 654.20 PREVIOUS C- SECTION 08/28/2012 V23.49 SUPERVISION OF HIGH-RISK WITH OTHER POOR OBSTETRIC HISTORY 08/28/2012 V23.9 , HIGH-RISK (UNSPEC) 08/28/2012 MARK BISWAS MD 250.00 DIABETES MELLITUS POORLY CONTROLLED 08/28/2012 MARK BISWAS MD 300.00 ANXIETY UNSPEC 08/28/2012 MARK BISWAS MD 649.00 MATERNAL TOBACCO USE COMPLICATING PREG / / PUERPERIUM 08/28/2012 MARK BISWAS MD 654.20 PREVIOUS 08/28/2012 MARK BISWAS MD V23.49 SUPERVISION OF HIGH-RISK WITH OTHER POOR OBSTETRIC HISTORY 08/28/2012 MARK BISWAS MD V23.9 , HIGH-RISK (UNSPEC) 08/28/2012 MARK BISWAS MD 250.00 DIABETES MELLITUS TYPE 2 08/28/2012 MARK BISWAS MD 300.00 ANXIETY UNSPEC 08/28/2012 MARK BISWAS MD 649.00 MATERNAL TOBACCO USE COMPLICATING PREG / / PUERPERIUM 08/28/2012 MARK BISWAS MD 654.20 PREVIOUS 08/28/2012 MARK BISWAS MD V23.49 SUPERVISION OF HIGH-RISK WITH OTHER POOR OBSTETRIC HISTORY 08/28/2012 MARK BISWAS MD V23.9 , HIGH-RISK (UNSPEC) 08/28/2012 MARK BISWAS MD 250.00 DIABETES MELLITUS TYPE 2 08/28/2012 MARK BISWAS MD 300.00 ANXIETY UNSPEC 08/28/2012 MARK BISWAS MD 649.00 MATERNAL TOBACCO USE COMPLICATING PREG / / PUERPERIUM 08/28/2012 MARK BISWAS MD 654.20 PREVIOUS 08/28/2012 MARK BISWAS MD V23.49 SUPERVISION OF HIGH-RISK WITH OTHER POOR OBSTETRIC HISTORY 08/28/2012 MARK BISWAS MD V23.9 , HIGH-RISK (UNSPEC) 08/28/2012 MARK BISWAS MD 250.00 DIABETES MELLITUS TYPE 2 08/28/2012 MARK BISWAS MD 300.00 ANXIETY UNSPEC 08/28/2012 MARK BISWAS MD 649.00 MATERNAL TOBACCO USE COMPLICATING PREG / / PUERPERIUM 08/28/2012 MARK BISWAS MD 654.20 PREVIOUS 08/28/2012 MARK BISWAS MD V23.49 SUPERVISION OF HIGH-RISK WITH OTHER POOR OBSTETRIC HISTORY 08/28/2012 MARK BISWAS MD V23.9 , HIGH-RISK (UNSPEC) 08/28/2012 MARK BISWAS MD 250.00 DIABETES MELLITUS TYPE 2 08/28/2012 MARK BISWAS MD 300.00 ANXIETY UNSPEC 08/28/2012 MARK BISWAS MD 649.00 MATERNAL TOBACCO USE COMPLICATING PREG / / PUERPERIUM 08/28/2012 MARK BISWAS MD 654.20 PREVIOUS 08/28/2012 MARK BISWAS MD V23.49 SUPERVISION OF HIGH-RISK WITH OTHER POOR OBSTETRIC HISTORY 08/28/2012 MARK BISWAS MD V23.9 , HIGH-RISK (UNSPEC) 08/28/2012 MARK BISWAS MD 250.00 DIABETES MELLITUS TYPE 2 08/28/2012 MARK BISWAS MD 300.00 ANXIETY UNSPEC 08/28/2012 MARK BISWAS MD 649.00 MATERNAL TOBACCO USE COMPLICATING PREG / / PUERPERIUM 08/28/2012 MARK BISWAS MD 654.20 PREVIOUS 08/28/2012 MARK BISWAS MD V23.49 SUPERVISION OF HIGH-RISK WITH OTHER POOR OBSTETRIC HISTORY 08/28/2012 MARK BISWAS MD V23.9 , HIGH-RISK (UNSPEC) 08/28/2012 MARK BISWAS MD 250.00 DIABETES MELLITUS TYPE 2 08/28/2012 MARK BISWAS MD 300.00 ANXIETY UNSPEC 08/28/2012 MARK BISWAS MD 649.00 MATERNAL TOBACCO USE COMPLICATING PREG / / PUERPERIUM 08/28/2012 MARK BISWAS MD 654.20 PREVIOUS 08/28/2012 MARK BISWAS MD V23.49 SUPERVISION OF HIGH-RISK WITH OTHER POOR OBSTETRIC HISTORY 08/28/2012 MARK BISWAS MD V23.9 , HIGH-RISK (UNSPEC) 08/28/2012 MARK BISWAS MD 250.00 DIABETES MELLITUS TYPE 2 08/28/2012 MARK BISWAS MD 300.00 ANXIETY UNSPEC 08/28/2012 MARK BISWAS MD 649.00 MATERNAL TOBACCO USE COMPLICATING PREG / / PUERPERIUM 08/28/2012 MARK BISWAS MD 654.20 PREVIOUS 08/28/2012 MARK BISWAS MD V23.49 SUPERVISION OF HIGH-RISK WITH OTHER POOR OBSTETRIC HISTORY 08/28/2012 MARK BISWAS MD V23.9 , HIGH-RISK (UNSPEC) 09/15/2012 WENDIE WESTFALL DO V23.41 , HIGH RISK W/ HX OF PRE-TERM LABOR 09/15/2012 V23.41 , HIGH RISK W/ HX OF PRE-TERM LABOR 09/15/2012 V23.41 , HIGH RISK W/ HX OF PRE-TERM LABOR 09/15/2012 V23.41 , HIGH RISK W/ HX OF PRE-TERM LABOR 09/15/2012 V23.41 , HIGH RISK W/ HX OF PRE-TERM LABOR 09/15/2012 V23.41 , HIGH RISK W/ HX OF PRE-TERM LABOR 09/15/2012 ZULAY GURROLA, MARK V23.41 , HIGH RISK W/ HX OF PRE-TERM LABOR 09/15/2012 ZULAY GURROLA, MARK V23.41 , HIGH RISK W/ HX OF PRE-TERM LABOR 09/15/2012 ZULAY GURROLA, MARK V23.41 , HIGH RISK W/ HX OF PRE-TERM LABOR 09/15/2012 MARK BISWAS MD V23.41 , HIGH RISK W/ HX OF PRE-TERM LABOR 09/15/2012 MARK BISWAS MD V23.41 , HIGH RISK W/ HX OF PRE-TERM LABOR 09/15/2012 MARK BISWAS MD V23.41 , HIGH RISK W/ HX OF PRE-TERM LABOR 09/15/2012 MARK BISWAS MD V23.41 , HIGH RISK W/ HX OF PRE-TERM LABOR 09/15/2012 MARK BISWAS MD V23.41 , HIGH RISK W/ HX OF PRE-TERM LABOR 10/09/2012 Ot 599.0 URIN TRACT INFECTION NOS 10/09/2012 Ot 625.9 FEM GENITAL SYMPTOMS NOS 10/09/2012 Ot 640.03 THREATEN ABORT-ANTEPART 10/09/2012 Ot 646.63 INFECTION -ANTEPARTUM 11/06/2012 Ot 250.00 DIAB NABILA WO COMPL, TYPE II OR UNSPEC TY 11/06/2012 Ot 634.91 SPON ABORT UNCOMPL-INC 11/06/2012 Ot 648.03 DIABETES- ANTEPARTUM 11/06/2012 Ot 658.13 JACQUES RUPT MEMB-ANTEPART 03/29/2013 311 DEPRESSIVE DISORDER NOT ELSEWHERE CLASSIFIED 03/29/2013 MARK BISWAS MD 311 DEPRESSIVE DISORDER NOT ELSEWHERE CLASSIFIED 03/29/2013 HUERTER MD, MARK 311 DEPRESSIVE DISORDER NOT ELSEWHERE CLASSIFIED 03/29/2013 MARK BISWAS MD DEPRESSIVE DISORDER NOT ELSEWHERE CLASSIFIED 03/29/2013 MARK BISWAS MD DEPRESSIVE DISORDER NOT ELSEWHERE CLASSIFIED 03/29/2013 MARK BISWAS MD DEPRESSIVE DISORDER NOT ELSEWHERE CLASSIFIED 03/29/2013 MARK BISWAS MD DEPRESSIVE DISORDER NOT ELSEWHERE CLASSIFIED 03/29/2013 MARK BISWAS MD DEPRESSIVE DISORDER NOT ELSEWHERE CLASSIFIED 03/29/2013 MARK BISWAS MD DEPRESSIVE DISORDER NOT ELSEWHERE CLASSIFIED 09/05/2014 MARK BISWAS MD 250.02 DIABETES MELLITUS WITHOUT MENTION OF COMPLICATION TYPE II OR UNSPECIFIED TYPE UNCONTROLLED 09/05/2014 MARK BISWAS MD 250.02 DIABETES MELLITUS WITHOUT MENTION OF COMPLICATION TYPE II OR UNSPECIFIED TYPE UNCONTROLLED 10/25/2015 Ot V23.9 10/25/2015 Ot V28.89 10/25/2015 Ot V23.9 10/25/2015 Ot V28.89 10/28/2015 ZENA DRAPER MD Ot A41.9 SEPSIS, UNSPECIFIED ORGANISM 10/28/2015 ZENA DRAPER MD Ot E08.10 DIABETES DUE TO UNDERLYING CONDITION W K 10/28/2015 ZENA DRAPER MD Ot E66.9 OBESITY, UNSPECIFIED 10/28/2015 ZENA DRAPER MD Ot E86.0 DEHYDRATION 10/28/2015 ZENA DRAPER MD Ot E87.1 HYPO-OSMOLALITY AND HYPONATREMIA 10/28/2015 ZENA DRAPER MD Ot F17.210 NICOTINE DEPENDENCE, CIGARETTES, UNCOMPL 10/28/2015 ZENA DRAPER MD Ot I10 ESSENTIAL (PRIMARY) HYPERTENSION 10/28/2015 ZENA DRAPER MD Ot J15.4 PNEUMONIA DUE TO OTHER STREPTOCOCCI 10/28/2015 ZENA DRAPER MD Ot J18.9 10/28/2015 ZENA DRAPER MD Ot J45.909 UNSPECIFIED ASTHMA, UNCOMPLICATED 10/28/2015 ZENA DRAPER MD Ot J90 PLEURAL EFFUSION, NOT ELSEWHERE CLASSIFI 10/28/2015 ZENA DRAPER MD Ot Z68.35 BODY MASS INDEX (BMI) 35.0-35.9, ADULT 10/28/2015 ZENA DRAPER MD Ot Z79.4 DIRECTOR AGENCY & STRATEGIC PARTNERSHIPS (CURRENT) USE OF INSULIN 11/21/2015 Ot V23.9 11/21/2015 Ot V28.89 11/21/2015 CAMMIE DUCKWORTH TALIA M Ot E11.9 11/21/2015 CAMMIE TALIA M Ot J18.9 11/21/2015 CAMMIE TALIA Day Ot R06.02 11/21/2015 CAMMIE TALIA Day Ot Z72.0 11/21/2015 TALIA BONDS DO Ot E11.9 11/21/2015 CAMMIE DUCKWORTH TALIA M Ot J18.9 11/21/2015 CAMMIE TALIA Day Ot R06.02 11/21/2015 CAMMIE DUCKWORTH TALIA Day Ot Z72.0 12/05/2015 CAMMIE DUCKWORTH TALIA M Ot E11.9 12/05/2015 CAMMIE DUCKWORTH TALIA M Ot J18.9 12/05/2015 CAMMIE DUCKWORTH TALIA Day Ot R06.02 12/05/2015 CAMMIE DUCKWORTH TALIA M Ot Z72.0 04/05/2017 Ot V23.9 SUPRV HIGH- RISK PREG NOS 04/05/2017 Ot V28.89 OTHER SPECIFIED SCREENING 04/05/2017 TALIA BONDS DO Ot E11.9 TYPE 2 DIABETES MELLITUS WITHOUT COMPLIC 04/05/2017 TALIA BONDS DO Ot J18.9 PNEUMONIA, UNSPECIFIED ORGANISM 04/05/2017 CAMMIE DUCKWORTH TALIA M Ot R06.02 SHORTNESS OF BREATH 04/05/2017 CAMMIE DUCKWORTH TALIA M Ot Z72.0 TOBACCO USE 04/06/2017 XIOMARA TORRES Ot E11.9 TYPE 2 DIABETES MELLITUS WITHOUT COMPLIC 04/06/2017 XIOMARA TORRES Ot E78.00 PURE HYPERCHOLESTEROLEMIA, UNSPECIFIED 04/06/2017 XIOMARA TORRES Ot E86.9 VOLUME DEPLETION, UNSPECIFIED 04/06/2017 XIOMARA TORRES Ot F17.210 NICOTINE DEPENDENCE, CIGARETTES, UNCOMPL 04/06/2017 XIOMARA TORRES Ot I10 ESSENTIAL (PRIMARY) HYPERTENSION 04/06/2017 XIOMARA TORRES Ot J45.909 UNSPECIFIED ASTHMA, UNCOMPLICATED 04/06/2017 XIOMARA TORRES Ot N39.0 URINARY TRACT INFECTION, SITE NOT SPECIF 04/06/2017 XIOMARA TORRES Ot N99.821 POSTPROC HEMOR OF A SYS ORG FOLLOWING 04/06/2017 XIOMARA TORRES Ot Z79.4 SHELTER (CURRENT) USE OF INSULIN 04/06/2017 XIOMARA TORRES Ot Z79.84 DIRECTOR AGENCY & STRATEGIC PARTNERSHIPS (CURRENT) USE OF ORAL HYPOGLYC 04/06/2017 XIOMARA TORRES Ot Z87.59 PERSONAL HISTORY OF COMP OF PREG, CHLDBR 04/06/2017 XIOMARA TORRES Ot Z94.5 SKIN TRANSPLANT STATUS 04/06/2017 XIOMARA TORRES Ot Z98.51 TUBAL LIGATION STATUS 04/06/2017 Ot V23.9 SUPRV HIGH- RISK PREG NOS 04/06/2017 Ot V28.89 OTHER SPECIFIED SCREENING 04/06/2017 TALIA BONDS DO Ot E11.9 TYPE 2 DIABETES MELLITUS WITHOUT COMPLIC 04/06/2017 TALIA BONDS DO Ot J18.9 PNEUMONIA, UNSPECIFIED ORGANISM 04/06/2017 TALIA BONDS DO Ot R06.02 SHORTNESS OF BREATH 04/06/2017 TALIA BONDS DO Ot Z72.0 TOBACCO USE 04/09/2017 XIOMARA TORRES Ot E11.9 TYPE 2 DIABETES MELLITUS WITHOUT COMPLIC 04/09/2017 XIOMARA TORRES Ot E78.00 PURE HYPERCHOLESTEROLEMIA, UNSPECIFIED 04/09/2017 XIOMARA TORRES Ot E86.9 VOLUME DEPLETION, UNSPECIFIED 04/09/2017 XIOMARA TORRES Ot F17.210 NICOTINE DEPENDENCE, CIGARETTES, UNCOMPL 04/09/2017 XIOMARA TORRES Ot I10 ESSENTIAL (PRIMARY) HYPERTENSION 04/09/2017 XIOMARA TORRES Ot J45.909 UNSPECIFIED ASTHMA, UNCOMPLICATED 04/09/2017 XIOMARA TORRES Ot N39.0 URINARY TRACT INFECTION, SITE NOT SPECIF 04/09/2017 XIOMARA TORRES Ot N99.821 POSTPROC HEMOR OF A SYS ORG FOLLOWING 04/09/2017 XIOMARA TORRES Ot Z79.4 DIRECTOR AGENCY & STRATEGIC PARTNERSHIPS (CURRENT) USE OF INSULIN 04/09/2017 XIOMARA TORRES Ot Z79.84 SHELTER (CURRENT) USE OF ORAL HYPOGLYC 04/09/2017 XIOMARA TORRES Ot Z87.59 PERSONAL HISTORY OF COMP OF PREG, CHLDBR 04/09/2017 XIOMARA TORRES Ot Z94.5 SKIN TRANSPLANT STATUS 04/09/2017 XIOMARA TORRES Ot Z98.51 TUBAL LIGATION STATUS Procedures Code Description [place] [address] ROUTINE VENIPUNCTURE 08/28/2012 26880 URINE TEST (IN- HOUSE) 08/28/2012 88552 CBC 08/28/2012 88215 TSH 08/29/2012 15691 BLOOD TYPE/Rh FACTOR 08/29/2012 [id number] ANTIBODY SCREEN (RESULT ONLY) 08/29/2012 46447 RUBELLA ANTIBODY, IGG 08/29/2012 85702 US OB ULTRASOUND 08/31/2012 88493 SYPHILLIS-[facility] 08/31/2012 13415 HIV-[facility] 08/31/2012 16293 ANTIBODY SCREEN (order) 08/31/2012 85709 HEP B SURFACE ANTIGEN (STATE ) 08/31/2012 15513 A1C (IN-HOUSE) 09/07/2012 12484 MICRO ALBUMIN-IN HOUSE 09/07/2012 78219 UA LONG DIP 09/15/2012 24635 GC/CHLAM PROBE (STATE) 09/15/2012 99904 PAP SMEAR 09/15/2012 Obstetric Ant Wilkinson 09/15/2012 Q0091 PAP SMEAR OBTAIN SMEAR 09/15/2012 69.02 D C POST DELIVERY 11/05/2012 89348 ROUTINE VENIPUNCTURE 03/29/2013 41439 A1C (IN-HOUSE) 03/29/2013 73449 CMP 03/29/2013 [id number] GFR CALC (RESULT ONLY) 03/29/2013 [id number] CLINICAL PATHOLOGY REPORT 04/08/2013 47254 A1C (IN-HOUSE) 10/29/2013 25647 A1C (IN-HOUSE) 06/02/2014 49108 MICRO ALBUMIN-IN HOUSE 06/02/2014 73333 ROUTINE VENIPUNCTURE 06/03/2014 7890015 GFR CALC (RESULT ONLY) 06/03/2014 43763 CMP 06/03/2014 23936 LIPID PANEL 06/03/2014 86895 A1C (IN-HOUSE) 09/05/2014 Results Test Result Range Complete blood count (CBC) with automated white blood cell (WBC) differential - 04/05/17 22:20 Blood leukocytes automated count (number/volume) 17.9 10*3/uL 4.3-11.0 Blood erythrocytes automated count (number/volume) 5.16 10*6/uL 4.35-5.85 Venous blood hemoglobin measurement (mass/volume) 15.1 g/dL 11.5-16.0 Blood hematocrit (volume fraction) 44 % 35-52 Automated erythrocyte mean corpuscular volume 84 [foz_us] 80-99 Automated erythrocyte mean corpuscular hemoglobin (mass per erythrocyte) 29 pg 25-34 Automated erythrocyte mean corpuscular hemoglobin concentration measurement ( mass/volume) 35 g/dL 32-36 Automated erythrocyte distribution width ratio 12.5 % 10.0-14.5 Automated blood platelet count (count/volume) 326 10*3/uL 130-400 Automated blood platelet mean volume measurement 9.9 [foz_us] 7.4-10.4 Automated blood neutrophils/100 leukocytes 74 % 42-75 Automated blood lymphocytes/100 leukocytes 19 % 12-44 Blood monocytes/100 leukocytes 6 % 0-12 Automated blood eosinophils/100 leukocytes 2 % 0-10 Automated blood basophils/100 leukocytes 0 % 0-10 Blood neutrophils automated count (number/volume) 13.2 10*3 1.8-7.8 Blood lymphocytes automated count (number/volume) 3.4 10*3 1.0-4.0 Blood monocytes automated count (number/volume) 1.0 10*3 0.0-1.0 Automated eosinophil count 0.3 10*3/uL 0.0-0.3 Automated blood basophil count (count/volume) 0.1 10*3/uL 0.0-0.1 Comprehensive metabolic panel - 04/05/17 22:20 Serum or plasma sodium measurement (moles/volume) 139 mmol/L 135-145 Serum or plasma potassium measurement (moles/volume) 3.4 mmol/L 3.6-5.0 Serum or plasma chloride measurement (moles/volume) 103 mmol/L 98-107 Carbon dioxide 22 mmol/L 21-32 Serum or plasma anion gap determination (moles/volume) 14 mmol/L 5-14 Serum or plasma urea nitrogen measurement (mass/volume) 11 mg/dL 7-18 Serum or plasma creatinine measurement (mass/volume) 0.73 mg/dL 0.60-1.30 Serum or plasma urea nitrogen/creatinine mass ratio 15 NRG Serum or plasma creatinine measurement with calculation of estimated glomerular filtration rate > NRG Serum or plasma glucose measurement (mass/volume) 94 mg/dL 70-105 Serum or plasma calcium measurement (mass/volume) 10.1 mg/dL 8.5-10.1 Serum or plasma total bilirubin measurement (mass/volume) 0.2 mg/dL 0.1-1.0 Serum or plasma alkaline phosphatase measurement (enzymatic activity/volume) 81 U/L 40-136 Serum or plasma aspartate aminotransferase measurement (enzymatic activity/ volume) 12 U/L 5-34 Serum or plasma alanine aminotransferase measurement (enzymatic activity/volume ) 20 U/L 0-55 Serum or plasma protein measurement (mass/volume) 7.8 g/dL 6.4-8.2 Serum or plasma albumin measurement (mass/volume) 4.3 g/dL 3.2-4.5 Serum or plasma choriogonadotropin ( test) detection - 04/05/17 22:20 Serum or plasma choriogonadotropin ( test) detection NEGATIVE NEGATIVE Blood manual differential performed detection - 04/05/17 22:20 Blood monocytes/100 leukocytes 2 % NRG Manual blood segmented neutrophils/100 leukocytes 72 % NRG Blood band neutrophils/100 leukocytes 2 % NRG Manual blood lymphocytes/100 leukocytes 20 % NRG Manual eosinophils/100 leukocytes in nose 3 % NRG Manual blood basophils/100 leukocytes 1 % NRG Blood erythrocyte morphology finding identification NORMAL NRG Serum or plasma C reactive protein measurement (mass/volume) - 04/05/17 22:20 Serum or plasma C reactive protein measurement (mass/volume) 0.97 mg /dL 0.00-0.50 Complete urinalysis with reflex to culture - 04/05/17 22:55 Urine color determination JOHN NRG Urine clarity determination VERY CLOUDY NRG Urine pH measurement by test strip 6 5-9 Specific gravity of urine by test strip 1.020 1.016- 1.022 Urine protein assay by test strip, semi-quantitative 2+ NEGATIVE Urine glucose detection by automated test strip 4+ NEGATIVE Erythrocytes detection in urine sediment by light microscopy 5+ NEGATIVE Urine ketones detection by automated test strip 1+ NEGATIVE Urine nitrite detection by test strip NEGATIVE NEGATIVE Urine total bilirubin detection by test strip NEGATIVE NEGATIVE Urine urobilinogen measurement by automated test strip (mass/volume) 4 mg/dL NORMAL Urine leukocyte esterase detection by dipstick 2+ NEGATIVE Automated urine sediment erythrocyte count by microscopy (number/high power field) TNTC NRG Automated urine sediment leukocyte count by microscopy (number/high power field ) [HPF] NRG Bacteria detection in urine sediment by light microscopy NONE NRG Squamous epithelial cells detection in urine sediment by light microscopy 2-5 NRG Crystals detection in urine sediment by light microscopy NONE NRG Casts detection in urine sediment by light microscopy NONE NRG Mucus detection in urine sediment by light microscopy NEGATIVE NRG Complete urinalysis with reflex to culture YES NRG Bacterial urine culture - 04/05/17 22:55 Bacterial urine culture [id number] NRG COLONY COUNT <10,000 NRG Bacteria identification in genital specimen by aerobe culture - 04/06/17 00:10 FREE TEXT EXTERNAL PLUS NORMAL NAMITA NRG QUANTITY OF GROWTH Moderate Growth NRG Bacteria identification in genital specimen by aerobe culture [id number] NRG Microscopic examination by wet preparation - 04/06/17 00:10 WET PREP RESULTS ER 04/06 00:30 BY C RENO NRG Neisseria gonorrhoeae DNA detection by probe and signal amplification method - 04/06/17 00:10 Gonorrhea amp DNA-urine Not Detected Not Detected Chlamydia trachomatis DNA detection by probe and signal amplification method - 04/06/17 00:10 Chlamydia trachomatis DNA detection by probe and target amplification method Not Detected Not Detected Capillary blood glucose measurement by glucometer (mass/volume) - 12/26/17 09: 16 Capillary blood glucose measurement by glucometer (mass/volume) 301 mg/dL 70-110 Complete blood count (CBC) with automated white blood cell (WBC) differential - 12/26/17 09:28 Blood leukocytes automated count (number/volume) 12.1 10*3/uL 4.3-11.0 Blood erythrocytes automated count (number/volume) 4.74 10*6/uL 4.35-5.85 Venous blood hemoglobin measurement (mass/volume) 13.8 g/dL 11.5-16.0 Blood hematocrit (volume fraction) 40 % 35-52 Automated erythrocyte mean corpuscular volume 84 [foz_us] 80-99 Automated erythrocyte mean corpuscular hemoglobin (mass per erythrocyte) 29 pg 25-34 Automated erythrocyte mean corpuscular hemoglobin concentration measurement ( mass/volume) 35 g/dL 32-36 Automated erythrocyte distribution width ratio 12.8 % 10.0-14.5 Automated blood platelet count (count/volume) 188 10*3/uL 130-400 Automated blood platelet mean volume measurement 10.0 [foz_us] 7.4-10.4 Automated blood neutrophils/100 leukocytes 91 % 42-75 Automated blood lymphocytes/100 leukocytes 4 % 12-44 Blood monocytes/100 leukocytes 5 % 0-12 Automated blood eosinophils/100 leukocytes 0 % 0-10 Automated blood basophils/100 leukocytes 0 % 0-10 Blood neutrophils automated count (number/volume) 11.0 10*3 1.8-7.8 Blood lymphocytes automated count (number/volume) 0.4 10*3 1.0-4.0 Blood monocytes automated count (number/volume) 0.6 10*3 0.0-1.0 Automated eosinophil count 0.0 10*3/uL 0.0-0.3 Automated blood basophil count (count/volume) 0.0 10*3/uL 0.0-0.1 PT panel in platelet poor plasma by coagulation assay - 12/26/17 09:28 Prothrombin time (PT) in platelet poor plasma by coagulation assay 14.9 s 12.2-14.7 INR in platelet poor plasma or blood by coagulation assay 1.2 0.8-1.4 Activated partial thromboplastin time (aPTT) in platelet poor plasma bycoagulation assay - 12/26/17 09:28 Activated partial thromboplastin time (aPTT) in platelet poor plasma bycoagulation assay 31 s 24-35 Blood lactic acid measurement (moles/volume) - 12/26/17 09:28 Blood lactic acid measurement (moles/volume) 0.77 mmol/L 0.50-2.00 Comprehensive metabolic panel - 12/26/17 09:28 Serum or plasma sodium measurement (moles/volume) 130 mmol/L 135-145 Serum or plasma potassium measurement (moles/volume) 4.2 mmol/L 3.6-5.0 Serum or plasma chloride measurement (moles/volume) 94 mmol/L 98-107 Carbon dioxide 23 mmol/L 21-32 Serum or plasma anion gap determination (moles/volume) 13 mmol/L 5-14 Serum or plasma urea nitrogen measurement (mass/volume) 15 mg/dL 7-18 Serum or plasma creatinine measurement (mass/volume) 0.92 mg/dL 0.60-1.30 Serum or plasma urea nitrogen/creatinine mass ratio 16 NRG Serum or plasma creatinine measurement with calculation of estimated glomerular filtration rate > NRG Serum or plasma glucose measurement (mass/volume) 291 mg/dL 70-105 Serum or plasma calcium measurement (mass/volume) 9.3 mg/dL 8.5-10.1 Serum or plasma total bilirubin measurement (mass/volume) 1.0 mg/dL 0.1-1.0 Serum or plasma alkaline phosphatase measurement (enzymatic activity/volume) 94 U/L 40-136 Serum or plasma aspartate aminotransferase measurement (enzymatic activity/ volume) 26 U/L 5-34 Serum or plasma alanine aminotransferase measurement (enzymatic activity/volume ) 22 U/L 0-55 Serum or plasma protein measurement (mass/volume) 7.5 g/dL 6.4-8.2 Serum or plasma albumin measurement (mass/volume) 3.9 g/dL 3.2-4.5 Blood manual differential performed detection - 12/26/17 09:28 Blood monocytes/100 leukocytes 5 % NRG Manual blood segmented neutrophils/100 leukocytes 68 % NRG Blood band neutrophils/100 leukocytes 26 % NRG Manual blood lymphocytes/100 leukocytes 1 % NRG Manual eosinophils/100 leukocytes in nose 0 % NRG Manual blood basophils/100 leukocytes 0 % NRG Blood erythrocyte morphology finding identification NORMAL NRG Complete urinalysis with reflex to culture - 12/26/17 09:43 Urine color determination YELLOW NRG Urine clarity determination SLIGHTLY CLOUDY NRG Urine pH measurement by test strip 6 5-9 Specific gravity of urine by test strip 1.010 1.016- 1.022 Urine protein assay by test strip, semi-quantitative NEGATIVE NEGATIVE Urine glucose detection by automated test strip 4+ NEGATIVE Erythrocytes detection in urine sediment by light microscopy 1+ NEGATIVE Urine ketones detection by automated test strip 3+ NEGATIVE Urine nitrite detection by test strip NEGATIVE NEGATIVE Urine total bilirubin detection by test strip NEGATIVE NEGATIVE Urine urobilinogen measurement by automated test strip (mass/volume) NORMAL NORMAL Urine leukocyte esterase detection by dipstick 2+ NEGATIVE Automated urine sediment erythrocyte count by microscopy (number/high power field) [HPF] NRG Automated urine sediment leukocyte count by microscopy (number/high power field ) [HPF] NRG Bacteria detection in urine sediment by light microscopy TRACE NRG Squamous epithelial cells detection in urine sediment by light microscopy 10-25 NRG Crystals detection in urine sediment by light microscopy NONE NRG Casts detection in urine sediment by light microscopy NONE NRG Mucus detection in urine sediment by light microscopy NEGATIVE NRG Complete urinalysis with reflex to culture YES NRG Yeast detection in urine sediment by light microscopy FEW NRG Capillary blood glucose measurement by glucometer (mass/volume) - 12/26/17 10: 58 Capillary blood glucose measurement by glucometer (mass/volume) 216 mg/dL 70-110 Encounters ACCT No. Visit Date/Time Discharge Status Pt. Type Provider Facility Loc./Unit Complaint [id number] 09/05/2014 15:18:00 09/05/2014 23:59:59 CLS Outpatient MARK BISWAS MD [id number] 09/05/2014 15:18:00 09/05/2014 23:59:59 CLS Outpatient MARK BISWAS MD [id number] 06/03/2014 09:52:00 06/03/2014 23:59:59 CLS Outpatient MARK BISWAS MD [id number] 06/02/2014 13:40:00 06/02/2014 23:59:59 CLS Outpatient MARK BISWAS MD [id number] 10/29/2013 08:40:00 10/29/2013 23:59:59 CLS Outpatient MARK BISWAS MD [id number] 10/29/2013 08:40:00 10/29/2013 23:59:59 CLS Outpatient MARK BISWAS MD [id number] 06/07/2013 08:39:00 06/07/2013 23:59:59 CLS Outpatient MARK BISWAS MD [id number] 03/29/2013 14:27:00 03/29/2013 23:59:59 CLS Outpatient MARK BISWAS MD [id number] 09/15/2012 13:35:00 09/15/2012 23:59:59 CLS Outpatient WENDIE WESTFALL DO [id number] 09/15/2012 13:35:00 09/15/2012 23:59:59 CLS Outpatient [id number] 09/07/2012 14:36:00 09/07/2012 23:59:59 CLS Outpatient [id number] 08/28/2012 14:32:00 08/28/2012 23:59:59 CLS Outpatient [id number] 08/28/2012 14:32:00 08/28/2012 23:59:59 CLS Outpatient [id number] 07/01/2012 00:00:00 07/01/2012 23:59:59 [place] [id number] 05/29/2012 14:42:00 05/29/2012 23:59:59 CLS Outpatient MARK BISWAS MD [id number] 03/29/2013 14:27:00 Document Registration [id number] 01/04/2013 08:52:00 Document Registration [id number] 12/07/2012 13:20:00 Document Registration [id number] 11/18/2017 09:40:00 11/18/2017 23:59:59 CLS Outpatient MARK BISWAS MD [facility] [id number] 04/05/2017 19:45:00 04/06/2017 00:40:00 DIS Emergency NIKKY HERRERA, XIOMARA Gutiérrez [facility] ER BLEEDING (HEMORRHAGE) [id number] 11/21/2015 13:55:00 11/21/2015 23:59:59 CLS Outpatient TALIA BONDS DO [facility] RAD PNEUMONIA,SOB,DIABETES [id number] 10/25/2015 01:45:00 10/28/2015 11:50:00 DIS Inpatient BARON GURROLA, ZENA Chen [facility] 4TH RLL PNEUMONIA; LEUKOCYTOSIS;IDDM [id number] 12/26/2017 09:22:00 Document Registration [id number] 11/04/2012 10:38:00 Document Registration [id number] 10/09/2012 17:50:00 Document Registration [id number] 09/04/2012 12:10:00 Document Registration
[2017-12-26] MEDS ORDERED: MEROPENEM 500 MG VIAL (MERREM) IV ONE (12:26)
[2017-12-26] MEDS ORDERED: fentaNYL INJECTION 100 MCG/2 ML AMP IVP PRN (12:30)
[2017-12-26 13:17] VITALS: BP 111/65
--- NOTE | 2017-12-26 13:35 | History & Physical-Hospitalist ---
History of Present Illness HPI/Chief Complaint Pt is a 32yoCF who presented to the ER with CC of nausea and vomiting and fever. She states she was seen by her PCP Leah Jason NP yesterday due to back pain. She was sent to [facility] for labs and [facility] and was called later yesterday and told she had a "kidney infection" and was sent an Rx for Levaquin which she started yesterday. She continued to get worse though and could not quit vomiting. Her fever persisted (104) as well prompting her to seek evaluation in the ER. Here she was found to be dehydrated and very hyperglycemic. She was admitted for presumed pyelonephritis. Source: patient Date Seen 12/26/17 Time Seen by Provider: 12:00 Attending Physician Kamilah Santiago MD PCP Ina Jason Referring Physician Date of Admission December 26, 2017 at 12:02 pm Home Medications & Allergies Home Medications Reviewed patient Home Medication Reconciliation performed by pharmacy medication reconciliations generator technician and/or nursing. Patients Allergies have been reviewed. Allergies Allergies Coded Allergies Nitrofurantoin Macrocrystal (Verified Allergy, Severe, LOCK JAW, 12/26/17) Penicillins (Verified Allergy, Severe, EDEMA, 12/26/17) nitrofurantoin (Verified Allergy, Severe, LOCK JAW, 12/26/17) metformin (Verified Adverse Reaction, Mild, DIARRHEA, 12/26/17) glimepiride (Verified Adverse Reaction, Unknown, DIARRHEA, 12/26/17) Past Jeveuml-Kwnitg-Czapwr Hx Past Med/Social Hx: Reviewed Nursing Past Med/Soc Hx Patient Social History Alcohol Use: Denies Use Recreational Drug Use: No Smoking Status: Current Everyday Smoker Cigaretts per day: 10 Type Used: Cigarettes 2nd Hand Smoke Exposure: No Recent Foreign Travel: No Contact w/other who traveled: No Recent Hopitalizations: No Recent Infectious Disease Expo: No Seasonal Allergies Seasonal Allergies: No Past Medical History Surgeries: Section, Hysterectomy, Tubal Ligation Respiratory: Asthma Cardiac: High Cholesterol Hysterectomy, Tubal Ligation Endocrine: Diabetes, Insulin dep Family History Reviewed Nursing Family Hx Heart Disease, Diabetes, Hypertension Review of Systems Constitutional: fever, weakness EENTM: no symptoms reported Respiratory: No cough, No dyspnea on exertion, No short of breath Cardiovascular: No chest pain, No edema, No palpitations Gastrointestinal: No abdominal pain, No constipation, No diarrhea; nausea, vomiting Genitourinary: No dysuria; frequency Musculoskeletal: No joint pain, No muscle pain Skin: No lesions, No rash Psychiatric/Neurological: Denies Headache, Denies Numbness, Denies Tingling Physical Exam Physical Exam Vital Signs Vital Signs - First Documented 12/26/17 12/26/17 09:12 12:55 Temp 98.9 Pulse 124 Resp 18 B/P (MAP) 104/67 (79) Pulse Ox 96 O2 Delivery Room Air Capillary Refill : Less Than 3 Seconds General Appearance: No Apparent Distress, WD/WN HEENT: PERRL/EOMI; No Scleral Icterus (L), No Scleral Icterus (R) Neck: Supple; No JVD, No Thyromegaly Respiratory: Lungs Clear, No Respiratory Distress Cardiovascular: Regular Rate, Rhythm, No Murmur Gastrointestinal: Normal Bowel Sounds, Non Tender, Soft Back: CVA Tenderness (L) Extremity: Normal Capillary Refill, No Calf Tenderness, No Pedal Edema Neurologic/Psychiatric: Alert, Oriented x3, No Motor/Sensory Deficits, Normal Mood/Affect Skin: Normal Color, Warm/Dry, Other (scars consistent with skin grafting) Results Results/Procedures Labs Laboratory Tests 12/26/17 09:28 Patient resulted labs reviewed. Imaging: Reviewed Imaging Report Assessment/Plan Admission Diagnosis Pyelonephritis Admission Status: Inpatient Order (span 2 midnights) Reason for Inpatient Admission: failed outpatient antibiotics Diagnosis/Problems Diagnosis/Problems (1) Pyelonephritis Assessment & Plan: Failed Levaquin at home Allergy to PCN reported as severe Will start on Merrem Records requested from [facility] where labs were down yesterday Does not meet severe sepsis criteria Await cultures (2) Insulin dependent diabetes mellitus Assessment & Plan: Will add sliding scale insulin Takes 35U Tresiba nightly Will add Levemir 35U instead while admitted (3) Intractable nausea and vomiting Status: Acute Assessment & Plan: Continue Zofran and Phenergan (4) Prophylactic measure Assessment & Plan: NS at 100ml/hr Lovenox ADA diet KAMILAH SANTIAGO MD December 26, 2017 1:34 pm
[2017-12-26] MEDS ORDERED: MEROPENEM 1,000 MG in NS (IVPB) 100 ML IV SCH (14:00)
[2017-12-26] MEDS: ENOXAPARIN 40 MG/0.4 ML (LOVENOX) SYR SC SCH (14:14)
[2017-12-26] MEDS ORDERED: PROMETHAZINE INJ 25 MG/ML (PHENERGAN) AMP IVP PRN (14:15)
[2017-12-26] MEDS: NS IV 1000 ML 1,000 ML IV SCH (14:15)
[2017-12-26] MEDS ORDERED: CATHETER FLUSH 10 ML SYR IV PRN (15:15)
[2017-12-26] MEDS: NICOTINE 14 MG (NICODERM) PATCH TD SCH (15:19)
[2017-12-26] MEDS: ACETAMINOPHEN 325 MG TABLET/CAPLET (TYLENOL) PO PRN ×2 (15:20→21:45)
[2017-12-26] MEDS: inSUlin ASPART (NovoLOG) 1 UNIT/0.01 ML (CHARGE PER UNIT) SC SCH ×2 (15:23→20:57)
[2017-12-26 15:31] VITALS: BP 118/69
[2017-12-26] MEDS ORDERED: DAPA10TA PO (17:17)
[2017-12-26] MEDS ORDERED: INSU100I32 SQ (17:17)
[2017-12-26] MEDS ORDERED: LISI2.5T PO (17:17)
[2017-12-26] MEDS ORDERED: LORA10TA7 PO (17:17)
[2017-12-26] MEDS ORDERED: SITA100T12 PO (17:17)
[2017-12-26] MEDS ORDERED: ONDA4TAB8 SL (17:17)
[2017-12-26] MEDS ORDERED: SIMV20TA3 PO (17:17)
[2017-12-26] MEDS ORDERED: INSU100I14 SQ (17:17)
[2017-12-26] MEDS ORDERED: ALPR0.5T7 PO (17:17)
[2017-12-26] MEDS ORDERED: PRAZ2CAP2 PO (17:17)
[2017-12-26] MEDS ORDERED: EXEN2PEN SQ (17:17)
[2017-12-26] MEDS ORDERED: FENO48TA5 PO (17:17)
[2017-12-26] MEDS ORDERED: BUSP15TA60 PO (17:17)
[2017-12-26] MEDS: MEROPENEM 500 MG in NS (IVPB) 100 ML IV SCH ×2 (18:05→23:53)
[2017-12-26] MEDS ORDERED: ONDA4TAB10 PO (18:10)
[2017-12-26 19:02] VITALS: BP 103/56
[2017-12-26] MEDS: inSUlin DETERMIR 1 UNIT/0.01 ML (LEVEMIR) CHARGE PER UNIT SQ SCH (20:57)
[2017-12-27 00:12] VITALS: BP 106/59
[2017-12-27] MEDS: NS IV 1000 ML 1,000 ML IV SCH ×2 (03:19→10:15)
[2017-12-27 04:33] VITALS: BP 109/60
[2017-12-27] MEDS: MEROPENEM 500 MG in NS (IVPB) 100 ML IV SCH ×4 (05:32→23:56)
[2017-12-27] MEDS: inSUlin ASPART (NovoLOG) 1 UNIT/0.01 ML (CHARGE PER UNIT) SC SCH ×4 (05:33→21:21)
[2017-12-27 06:25] LABS: HEMOGLOBIN 13.1 G/DL (11.5-16.0); MEAN PLATELET VOLUME 10.2 FL (7.4-10.4); RED BLOOD COUNT 4.51 10^6/uL (4.35-5.85); RED CELL DISTRIBUTION WIDTH 12.4 % (10.0-14.5); WHITE BLOOD COUNT 5.6 10^3/uL (4.3-11.0)
[2017-12-27 06:39] LABS: BUN/CREATININE RATIO 20; CALCIUM 8.9 MG/DL (8.5-10.1); CARBON DIOXIDE 22 MMOL/L (21-32); CHLORIDE 104 MMOL/L (98-107); GFR ESTIMATED > 60; GLUCOSE 139 MG/DL (70-105); POTASSIUM 3.8 MMOL/L (3.6-5.0); SODIUM 138 MMOL/L (135-145)
[2017-12-27 07:44] VITALS: BP 110/64
[2017-12-27] MEDS: NICOTINE 14 MG (NICODERM) PATCH TD SCH (09:40)
[2017-12-27] MEDS: NICOTINE PATCH REMOVAL TP SCH (09:40)
--- NOTE | 2017-12-27 11:08 | Progress Note-Hospitalist ---
Subjective HPI/CC On Admission Date Seen by Provider: December 27, 2017 Time Seen by Provider: 11:03 Pt is a 32yoCF who presented to the ER with CC of nausea and vomiting and fever. She states she was seen by her PCP Leah Jason NP yesterday due to back pain. She was sent to [facility] for labs and CT and was called later yesterday and told she had a "kidney infection" and was sent an Rx for Levaquin which she started yesterday. She continued to get worse though and could not quit vomiting. Her fever persisted (104) as well prompting her to seek evaluation in the ER. Here she was found to be dehydrated and very hyperglycemic. She was admitted for presumed pyelonephritis. Subjective/Events-last exam Pt reports feeling much better today. No complaints. tolerating diet. Focused Exam Lactate Level 12/26/17 09:28: Lactic Acid Level 0.77 Objective Exam Vital Signs Vital Signs Date Time Temp Pulse Resp B/P (MAP) Pulse Ox O2 Delivery O2 Flow Rate FiO2 12/27/17 07:44 99.5 100 18 110/64 (79) 95 Room Air Capillary Refill : Less Than 3 Seconds General Appearance: No Apparent Distress, WD/WN Respiratory: Lungs Clear, No Respiratory Distress Cardiovascular: Regular Rate, Rhythm, No Murmur Gastrointestinal: Normal Bowel Sounds, Soft Extremity: No Calf Tenderness, No Pedal Edema Neurologic/Psychiatric: Alert, Oriented x3, Normal Mood/Affect Results/Procedures Lab Laboratory Tests 12/27/17 06:10 Patient resulted labs reviewed. Imaging: Reviewed Imaging Report Assessment/Plan Assessment and Plan Assess & Plan/Chief Complaint Pyelonephritis Diagnosis/Problems Diagnosis/Problems (1) Pyelonephritis Status: Acute Assessment & Plan: Failed Levaquin at home Allergy to PCN reported as severe Continue Merrem Prelim from [facility] on urine culture shows GNR- await ID and sensitivity Does not meet severe sepsis criteria Will add probiotic (2) Insulin dependent diabetes mellitus Status: Chronic Assessment & Plan: Continue sliding scale insulin Takes 35U Tresiba nightly Continue Levemir 35U instead while admitted (3) Intractable nausea and vomiting Status: Acute Assessment & Plan: Continue Zofran and Phenergan Qualifiers: Vomiting type: unspecified Qualified Codes: R11.2 - Nausea with vomiting, unspecified (4) Prophylactic measure Assessment & Plan: Saline lock Lovenox ADA diet Clinical Quality Measures DVT/VTE Risk/Contraindication: Risk Factor Score Per Nursin RFS Level Per Nursing on Admit: 3=High KAMILAH SANTIAGO MD December 27, 2017 11:08 am
[2017-12-27 12:14] VITALS: BP 114/68
[2017-12-27] MEDS: ENOXAPARIN 40 MG/0.4 ML (LOVENOX) SYR SC SCH (15:22)
[2017-12-27 16:00] VITALS: BP 111/71
[2017-12-27] MEDS: LACTOBACILLUS Acidoph/Bulgar (LACTINEX/FLORANEX) TAB PO SCH (16:56)
[2017-12-27] MEDS: inSUlin DETERMIR 1 UNIT/0.01 ML (LEVEMIR) CHARGE PER UNIT SQ SCH (21:21)
[2017-12-28] VITALS: BP 125/71
[2017-12-28] MEDS: LACTOBACILLUS Acidoph/Bulgar (LACTINEX/FLORANEX) TAB PO SCH ×2 (05:55→11:20)
[2017-12-28] MEDS: MEROPENEM 500 MG in NS (IVPB) 100 ML IV SCH ×2 (05:55→13:33)
[2017-12-28] MEDS: inSUlin ASPART (NovoLOG) 1 UNIT/0.01 ML (CHARGE PER UNIT) SC SCH ×2 (06:45→11:20)
[2017-12-28 07:06] LABS: HEMOGLOBIN 13.2 G/DL (11.5-16.0); MEAN PLATELET VOLUME 10.6 FL (7.4-10.4); RED BLOOD COUNT 4.59 10^6/uL (4.35-5.85); RED CELL DISTRIBUTION WIDTH 12.6 % (10.0-14.5); WHITE BLOOD COUNT 4.9 10^3/uL (4.3-11.0)
[2017-12-28 07:24] LABS: BUN/CREATININE RATIO 20; CARBON DIOXIDE 21 MMOL/L (21-32); CHLORIDE 106 MMOL/L (98-107); CREATININE SERUM 0.65 MG/DL (0.60-1.30); GFR ESTIMATED > 60; GLUCOSE 136 MG/DL (70-105); POTASSIUM 3.9 MMOL/L (3.6-5.0); SODIUM 138 MMOL/L (135-145)
[2017-12-28 07:35] VITALS: BP 108/66
[2017-12-28] MEDS: NICOTINE 14 MG (NICODERM) PATCH TD SCH (08:52)
[2017-12-28] MEDS: NICOTINE PATCH REMOVAL TP SCH (08:53)
[2017-12-28] MEDS ORDERED: CEPHALEXIN 250 MG (KEFLEX) CAP PO SCH ×2 (11:00→21:00)
--- NOTE | 2017-12-28 11:47 | Discharge Inst-Simple/Standard ---
Discharge Inst-Standard Discharge Medications New, Converted or Re-Newed RX: Call to Patients Pharmacy Patient Instructions/Follow Up Plan of Care/Instructions/FU: Please continue on your antibiotic as prescribed even if you feel better. Please continue to take your normal medications and follow up with your PCP Leah Jason to follow up this hospital stay in 1 week. Activity as Tolerated: Yes Discharge Diet: ADA Diet Return to The Hospital For: Worsening fever, pain, confusion, or if you feel you are getting worse. Planned Outpatient Orders/Ref. Pneu Vac Indicated: Yes KAMILAH SANTIAGO MD December 28, 2017 11:47 am
--- NOTE | 2017-12-28 11:49 | Discharge Summary-Hospitalist ---
Diagnosis/Chief Complaint Date of Admission December 26, 2017 at 12:02 pm Date of Discharge Discharge Date: December 28, 2017 Admission Diagnosis Pyelonephritis Discharge Diagnosis Pyelonephritis (1) Pyelonephritis Status: Acute Assessment & Plan: Failed Levaquin at home Allergy to PCN reported as severe Started on merrem- will switch toe keflex given sensitivities Does not meet severe sepsis criteria On probiotic (2) Insulin dependent diabetes mellitus Status: Chronic Assessment & Plan: Continue sliding scale insulin Takes 35U Tresiba nightly Continue Levemir 35U instead while admitted (3) Intractable nausea and vomiting Status: Resolved Assessment & Plan: Continue Zofran and Phenergan (4) Prophylactic measure Assessment & Plan: Saline lock Lovenox ADA diet Discharge Summary Discharge Physical Exam Allergies: Coded Allergies: Nitrofurantoin Macrocrystal (Verified Allergy, Severe, LOCK JAW, 12/26/17) nitrofurantoin (Verified Allergy, Severe, LOCK JAW, 12/26/17) Penicillins (Verified Allergy, Unknown, hives, 12/28/17) metformin (Verified Adverse Reaction, Mild, DIARRHEA, 12/26/17) glimepiride (Verified Adverse Reaction, Unknown, DIARRHEA, 12/26/17) Vitals & I&Os Vital Signs Date Time Temp Pulse Resp B/P (MAP) Pulse Ox O2 Delivery O2 Flow Rate FiO2 12/28/17 14:00 12/28/17 07:35 97.8 98 18 95 Room Air General Appearance: Alert, Oriented X3 Respiratory: Clear to Auscultation Cardiovascular: Regular Rate Psych/Mental Status: Mental Status NL, Mood NL Hospital Course Pt was admitted for pyleonephritis after failing outpatient management. She was started on merrem due to failure of Levaquin and reported history of severe PCN allergy. She improved dramatically and was transitioned to oral antibiotics after clarification of allergy information. Her PCN allergy was hives only. She was given Keflex in the hospital and tolerated it well. She was discharged home in stable condition. Labs (last 24 hrs) Microbiology 12/26/17 Blood Culture - Preliminary, Resulted No growth 12/26/17 Urine Culture - Final, Complete Presumptive Urmila Albicans Patient resulted labs reviewed. Pending Labs Imaging: Reviewed Imaging Report Discussion & Recommendations Discharge Planning: >30 minutes discharge planning Discharge Home Medications: Active Scripts Active Floranex Tablet (L. Acidophilus/Bulgaricus) 1 Each Tablet 1 Tab.chew PO AC Cephalexin 250 Mg Capsule 500 Mg PO BID Reported Ondansetron HCl 4 Mg Tablet 4 Mg PO Q8H PRN Tresiba Flextouch U-100 (Insulin Degludec) 100 Unit/1 Ml Insuln.pen 35 Units SQ HS LAST FILLED 08/20/17 #9ML FOR A 25 DAY SUPPLY Januvia (Sitagliptin Phosphate) 100 Mg Tablet 100 Mg PO DAILY LAST FILLED 08/20/17 #30 Simvastatin 20 Mg Tablet 20 Mg PO HS LAST FILLED 08/20/17 #30 Buspirone HCl 15 Mg Tablet 15 Mg PO TID Alprazolam 0.5 Mg Tablet 0.5 Mg PO BID Bydureon Pen (Exenatide Microspheres) 2 Mg/0.65 Ml Pen.injctr 2 Mg SQ WE Farxiga (Dapagliflozin Propanediol) 10 Mg Tablet 10 Mg PO HS Novolog Flexpen (Insulin Aspart) 300 Units/3 Ml Solution SQ SLIDING/SCALE USES BEFORE MEALS Loratadine 10 Mg Tablet 10 Mg PO DAILY Prazosin HCl 2 Mg Capsule 2 Mg PO HS Fenofibrate (Fenofibrate Nanocrystallized) 48 Mg Tablet 48 Mg PO DAILY Instructions to patient/family Please see electronic discharge instructions given to patient. Clinical Quality Measures DVT/VTE Risk/Contraindication: Risk Factor Score Per Nursin RFS Level Per Nursing on Admit: 3=High Copy Copies To 1: Leah Jason Problem Qualifiers (1) Intractable nausea and vomiting: Vomiting type: unspecified Qualified Codes: R11.2 - Nausea with vomiting, unspecified KAMILAH SANTIAGO MD December 28, 2017 11:49
[2017-12-28] MEDS ORDERED: ACID1TAB PO (13:39)
[2017-12-28] MEDS ORDERED: CEPH250C PO (13:39)
== END 2017-12-28 14:00 | disposition home or self-care (01) | DRG 690 ==
LOC: EDUNIT# 09:08 → ER 09:10 → 4TH 12:02 → EDBEDREQ 12:06 → 4TH 12-28 09:43
PROVIDERS: ADMIT Family Medicine; ATTEND Family Medicine
DX: N10 Acute pyelonephritis (principal); R11.2 Nausea with vomiting, unspecified; E11.9 Type 2 diabetes mellitus without complications; I10 Essential (primary) hypertension; E78.00 Pure hypercholesterolemia, unspecified; J45.909 Unspecified asthma, uncomplicated; F17.210 Nicotine dependence, cigarettes, uncomplicated; Z79.4 Long term (current) use of insulin; Z88.0 Allergy status to penicillin
CPT/HCPCS: 36415; 71045; 80048; 80053; 81000; 82962; 83605; 85007; 85027; 85610; 85730; 87040; 87088; 96361; 96374

== ENCOUNTER 2018-05-31 11:46 | Emergency (ER) | payer MEDICAID, OTHER ==
[~2018-05-31] VITALS: Ht 175.3 cm; Wt 95.3 kg
[~2018-05-31 11:46] MED LIST changes: +ACID1TAB PO; +ALPR0.5T7 PO; +BUSP15TA60 PO; +CEPH250C PO; +DAPA10TA PO; +EXEN2PEN SQ; +FENO48TA5 PO; +INSU100I32 SQ; +LEVO750T39 PO; +LISI2.5T PO; +LORA10TA7 PO; +ONDA4TAB10; +ONDA4TAB10 PO; +ONDA4TAB8 SL; +PRAZ2CAP2 PO; +SIMV20TA3 PO; +SITA100T12 PO
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
[2018-05-31] MEDS ORDERED: TETANUS,DIPTH,PERTUSS P/F (BOOSTRIX) 0.5 ML VIAL IM ONE (14:00)
[2018-05-31 14:17] VITALS: BP 111/86
== END 2018-05-31 14:18 | disposition home or self-care (01) ==
LOC: EDUNIT# 11:46 → ER 11:47
DX: S61.217A Laceration without foreign body of left little finger without damage to nail, initial encounter (principal); J45.909 Unspecified asthma, uncomplicated; E78.00 Pure hypercholesterolemia, unspecified; E11.9 Type 2 diabetes mellitus without complications; F17.210 Nicotine dependence, cigarettes, uncomplicated; Z94.5 Skin transplant status; Z82.49 Family history of ischemic heart disease and other diseases of the circulatory system; Z23 Encounter for immunization; Z98.51 Tubal ligation status; Z98.890 Other specified postprocedural states; Z90.710 Acquired absence of both cervix and uterus; Z88.0 Allergy status to penicillin; Z88.8 Allergy status to other drugs, medicaments and biological substances; Z79.4 Long term (current) use of insulin; W27.2XXA Contact with scissors, initial encounter
CPT/HCPCS: 90715

== ENCOUNTER 2019-08-24 20:30 | Emergency (ER) | payer MEDICAID ==
[~2019-08-24] VITALS: Ht 177.8 cm; Wt 88.6 kg
[2019-08-24 21:04] LABS: BILIRUBIN,URINE NEGATIVE (NEGATIVE); COLOR,URINE YELLOW; GLUCOSE, URINE (UA) 3+ (NEGATIVE); KETONES,URINE 1+ (NEGATIVE); LEUKOCYTE ESTERASE ,URINE NEGATIVE (NEGATIVE); NITRITE,URINE NEGATIVE (NEGATIVE); PROTEIN,URINE TRACE (NEGATIVE)
[2019-08-24 21:08] LABS: CLARITY,URINE SL CLOUDY
[2019-08-24 21:09] LABS: BACTERIA,URINE FEW /HPF
[2019-08-24 21:17] LABS: BASOPHILS # (AUTO) 0.1 10^3/uL (0.0-0.1); BASOPHILS % (AUTO) 1 % (0-10); EOSINOPHILS # (AUTO) 0.2 10^3/uL (0.0-0.3); EOSINOPHILS % (AUTO) 1 % (0-10); HEMATOCRIT 47 % (35-52); HEMOGLOBIN 16.6 G/DL (11.5-16.0); LYMPHOCYTES # (AUTO) 2.8 X 10^3 (1.0-4.0); LYMPHOCYTES % (AUTO) 19 % (12-44); MEAN CORPUSCULAR HEMOGLOBIN 30 PG (25-34); MEAN CORPUSCULAR HGB CONC 35 G/DL (32-36); MEAN CORPUSCULAR VOLUME 86 FL (80-99); MONOCYTES # (AUTO) 0.7 X 10^3 (0.0-1.0); MONOCYTES % (AUTO) 5 % (0-12); NEUTROPHILS # (AUTO) 11.3 X 10^3 (1.8-7.8); NEUTROPHILS % (AUTO) 75 % (42-75); PLATELET COUNT 289 10^3/uL (130-400); RED CELL DISTRIBUTION WIDTH 12.5 % (10.0-14.5); WHITE BLOOD COUNT 15.2 10^3/uL (4.3-11.0)
[2019-08-24] MEDS ORDERED: NS IV 1000 ML 1,000 ML IV SCH ×2 (21:30)
[2019-08-24] MEDS ORDERED: inSUlin (REGULAR) HUMAN 1 UNIT/0.01 ML (CHARGE PER UNIT) IV ONE (21:30)
[2019-08-24 21:35] LABS: BAND NEUTROPHILS 1 %; BASOPHILS % (MANUAL) 0 %; EOSINOPHILS % (MANUAL) 2 %; LYMPHOCYTES % (MANUAL) 14 %; MONOCYTES % (MANUAL) 3 %; NEUTROPHILS % (MANUAL) 77 %; REACTIVE LYMPHOCYTES 3 %; TOXIC GRANULATION/VACUOLAZATIO 1+
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
[2019-08-24 21:37] LABS: ALANINE AMINOTRANSFERASE 37 U/L (0-55); ALBUMIN 4.7 GM/DL (3.2-4.5); ALKALINE PHOSPHATASE 114 U/L (40-136); BILIRUBIN,TOTAL 0.3 MG/DL (0.1-1.0); BUN/CREATININE RATIO 19; CARBON DIOXIDE 20 MMOL/L (21-32); CHLORIDE 94 MMOL/L (98-107); CREATININE SERUM 1.07 MG/DL (0.60-1.30); GFR ESTIMATED 58; POTASSIUM 4.4 MMOL/L (3.6-5.0); SODIUM 133 MMOL/L (135-145)
[2019-08-24] MEDS ORDERED: cefTRIAXone FOR IV USE 1,000 MG in WATER (STERILE) FOR INJECTION 10 ML IV ONE (21:45)
[2019-08-24 21:47] LABS: GLUCOSE 470 MG/DL (70-105)
[2019-08-24] MEDS ORDERED: INSU100I14 SQ (22:14)
[2019-08-24] MEDS ORDERED: FLUC150T PO (22:29)
[2019-08-24] MEDS ORDERED: CEFU250T80 PO (22:29)
[2019-08-25 00:06] VITALS: BP 122/80
== END 2019-08-25 00:10 | disposition home or self-care (01) ==
LOC: EDUNIT# 20:30 → ER 20:32
DX: N39.0 Urinary tract infection, site not specified (principal); E11.65 Type 2 diabetes mellitus with hyperglycemia; J45.909 Unspecified asthma, uncomplicated; E78.00 Pure hypercholesterolemia, unspecified; F17.210 Nicotine dependence, cigarettes, uncomplicated; Z82.49 Family history of ischemic heart disease and other diseases of the circulatory system; Z88.0 Allergy status to penicillin; Z88.8 Allergy status to other drugs, medicaments and biological substances; Z79.4 Long term (current) use of insulin; Z90.710 Acquired absence of both cervix and uterus; Z98.51 Tubal ligation status
CPT/HCPCS: 36415; 80053; 81000; 82010; 82962; 84703; 85007; 85027; 87070; 87077; 87088; 87186; 87205; 87210; 87491; 87591; 96361; 96374; 96375

== ENCOUNTER 2021-12-25 10:03 | Emergency (ER) | payer MEDICAID ==
[~2021-12-25] VITALS: Ht 177.8 cm; Wt 84.3 kg
[~2021-12-25 10:03] MED LIST changes: +CEFU250T80 PO; -CIPR500T4 PO; +CIPR500T5 PO; +FENO48TA11 PO; -FENO48TA5 PO; +FLUC150T PO; -LEVO500T80 PO; +LEVO500T81 PO; -LISI2.5T PO; +LISI2.5T13 PO; +ONDA-105; +ONDA-105 PO; -ONDA4TAB10; -ONDA4TAB10 PO; +SIMV20TA26 PO; -SIMV20TA3 PO
[2021-12-25] MEDS ORDERED: HYDROcodone/APAP 7.5 MG/325 MG (LORTAB, LORCET PLUS) TABLET PO ONE (11:00)
[2021-12-25] MEDS ORDERED: LIDOCAINE 1% INJ 20 ML VIAL INJ ONE (11:30)
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
[2021-12-25] MEDS ORDERED: morphine INJ 10 MG/ML 1ML (SYR OR VIAL) IM STA (11:59)
[2021-12-25] MEDS ORDERED: CLIN-144 PO (13:25)
[2021-12-25] MEDS ORDERED: ONDA4TAB11 PO (13:25)
[2021-12-25] MEDS ORDERED: HYDR-3817 PO (13:25)
[2021-12-25 13:36] VITALS: BP 110/78
== END 2021-12-25 13:36 | disposition home or self-care (01) ==
LOC: EDUNIT# 10:03 → ER 10:05
DX: N76.4 Abscess of vulva (principal); E11.9 Type 2 diabetes mellitus without complications; Z79.4 Long term (current) use of insulin; F17.210 Nicotine dependence, cigarettes, uncomplicated
CPT/HCPCS: 10061; 87070; 87077; 87205

== ENCOUNTER 2021-12-27 14:03 | Emergency (ER) | payer MEDICAID ==
[~2021-12-27] VITALS: Ht 177.8 cm; Wt 84.3 kg
[~2021-12-27 14:03] MED LIST changes: +CLIN-144 PO; +HYDR-3817 PO; +ONDA4TAB11 PO
[2021-12-27 14:10] VITALS: BP 109/73
[2021-12-27] MEDS ORDERED: morphine INJ 10 MG/ML 1ML (SYR OR VIAL) IM STA (14:25)
--- NOTE | 2021-12-27 14:34 | ED Suture Removal/Wound Check ---
Suture/Wound Re-check Suture Removal/Wound Recheck : Suture Removal/Wound Recheck: Packing removed Progress Patient is a 36-year-old female who presents to the emergency room for packing removal and repacking of the labial abscess. Patient states she has been taking her medications as directed. She has been soaking in the tub. She has not called general surgery for a follow-up appointment. She denies fevers, chills or worsening swelling. She states her pain is actually feeling a little bit better. General Appearance: WD/WN, no apparent distress Skin Exam: normal color, warm/dry Physical Exam Vital Signs Vital Signs - First Documented 12/27/21 14:10 Pulse 120 Resp 16 B/P (MAP) 109/73 Pulse Ox 96 O2 Delivery Room Air Capillary Refill : General Appearance: WD/WN, no apparent distress Cardiovascular: regular rate, rhythm (tachy 112) Respiratory: lungs clear, normal breath sounds, no respiratory distress, no accessory muscle use Extremities: normal range of motion Neurologic/Psychiatric: alert Skin: other (wound site left labia still really indurated at the Mons Pubis on the left - no fluctuance. bedside ultrasound used to eval for a cavity of pus - I did not see one. I pulled the packing and irricated with about 150cc NS. repacked with about a foot and a half of 1/2" plain gauze again.) Departure Impression Primary Impression: Labial abscess Disposition: 01 HOME, SELF-CARE Condition: Stable Departure-Patient Inst. Decision time for Depature: 14:34 Referrals: [facility] [place] (PCP/Family) Primary Care Physician IMTIAZ NAVARRETE DO Patient Instructions: Edin (ELISA) Add. Discharge Instructions: Please continue to take your antibiotics as directed. Continue to bathe and clean the area as instructed. Please call Dr. Navarrete's office for a follow-up appointment - see if you can get in for a wound check tomorrow - let them know it is an ER follow up (from Friday). If you cannot get in tomorrow, please come back to the ER on Friday for another wound re-packing. Come back to the emergency department sooner for any fevers, worsening swelling or pain or other emergent concerning symptoms. Copy Copies To 1: IMTIAZ NAVARRETE DO Copies To 2: WENDIE WESTFALL KATHRYN M MD December 27, 2021 14:34
== END 2021-12-27 15:25 | disposition home or self-care (01) ==
LOC: EDUNIT# 14:03 → ER 14:04
DX: N76.4 Abscess of vulva (principal)

== ENCOUNTER 2021-12-30 11:05 | Outpatient (RCR) | payer MEDICAID ==
[2021-12-29 10:15] VITALS: BP 112/88
[2021-12-30 11:06] VITALS: BP 132/93
[2022-01-03] MEDS ORDERED: METF-479 PO (08:23)
[2022-01-08] MEDS ORDERED: INSU100I29 SQ (10:05)
[2022-01-08] MEDS ORDERED: PEN-53 MC (10:05)
[2022-01-08] MEDS ORDERED: INSU100I51 SQ (10:05)
[2022-01-09] MEDS ORDERED: LEVO750T39 PO (10:49)
[2022-01-09] MEDS ORDERED: INSU100I14 SQ (11:03)
== END 2022-01-22 | disposition home or self-care (01) ==
LOC: SDC 11:05
PROVIDERS: ATTEND Surgery
DX: Z48.00 Encounter for change or removal of nonsurgical wound dressing (principal)
CPT/HCPCS: 99212

== ENCOUNTER 2022-01-03 07:57 | Inpatient (IN) | payer MEDICAID ==
[~2022-01-03] VITALS: Ht 177.8 cm; Wt 86.5 kg
[2022-01-03] VITALS (9 sets, daily range): BP systolic 75–123; BP diastolic 53–90
--- NOTE | 2022-01-03 08:11 | Progress Note-Pre Operative ---
Pre-Operative Progress Note H&P Reviewed The H&P was reviewed, patient examined and no changes noted. Date Seen by Provider: January 03, 2022 Time Seen by Provider: 08:11 Date H&P Reviewed: January 03, 2022 Time H&P Reviewed: 08:11 Pre-Operative Diagnosis: left labial abscess IMTIAZ PETER DO January 03, 2022 08:11
[2022-01-03] MEDS ORDERED: METF-479 PO (08:23)
[2022-01-03] MEDS: LACTATED RINGERS 1,000 ML IV PRN ×2 (08:30→12:06)
[2022-01-03] MEDS ORDERED: CLINDAMYCIN 600 MG/50 ML IVPB 50 ML IV ONE (09:05)
[2022-01-03] MEDS ORDERED: inSUlin ASPART (NovoLOG) 1 UNIT/0.01 ML (CHARGE PER UNIT) IV ONE ×2 (09:30→10:30)
[2022-01-03] MEDS ORDERED: inSUlin ASPART (NovoLOG) 1 UNIT/0.01 ML (CHARGE PER UNIT) ONE (09:34)
[2022-01-03] MEDS ORDERED: LIDOCAINE/EPI 1%-1:200,000 (XYLOCAINE) 30 ML VIAL ONE (09:40)
[2022-01-03] MEDS ORDERED: fentaNYL INJ 100 MCG/2 ML AMP ONE ×2 (11:01→12:02)
[2022-01-03] MEDS ORDERED: MIDAZOLAM 2 MG/2 ML (VERSED) VIAL ONE (11:01)
[2022-01-03] MEDS ORDERED: LIDOCAINE PF 2% 5 ML (XYLOCAINE) VIAL ONE (11:33)
[2022-01-03] MEDS ORDERED: proPOfol 200 MG/20 ML (DIPRIVAN) VIAL IV ONE (11:33)
[2022-01-03] MEDS ORDERED: ONDANSETRON 4 MG/2 ML (SDV) Z0FRAN ONE (11:33)
[2022-01-03] MEDS ORDERED: SEVOFLURANE (ULTANE) 15 ML INHAL SOLN ONE (11:33)
--- NOTE | 2022-01-03 11:56 | Progress Note-Post Operative ---
Post-Operative Progess Note Surgeon (s)/Application Packaging Consultant (s) Surgeon IMTIAZ PETER DO Application Packaging Consultant: Jose Braga Pre-Operative Diagnosis left labial abscess Post-Operative Diagnosis same Procedure & Operative Findings Date of Procedure 01/03/22 Procedure Performed/Findings incsision and drainage and debridement, 9x3x4 cm left labia Anesthesia Type general Estimated Blood Loss Estimated blood loss (mL): minimal Specimens/Packing Specimens Removed culture Packing: iodoform gauze IMTIAZ PETER DO January 03, 2022 11:56
[2022-01-03] MEDS ORDERED: fentaNYL INJ 100 MCG/2 ML AMP IVP ONE (12:00)
--- NOTE | 2022-01-03 12:30 | Anesthesia-General Post-Op ---
General Patient Condition Mental Status/LOC: Same as Preop Cardiovascular: Satisfactory Nausea/Vomiting: Absent Respiratory: Satisfactory Pain: Controlled Complications: Absent Post Op Complications Complications None Follow Up Care/Instructions Patient Instructions None needed. Anesthesia/Patient Condition Patient Condition Patient is doing well, no complaints, stable vital signs, no apparent adverse anesthesia problems. No complications reported per nursing. KRISTY VAZQUEZ CRNA January 03, 2022 12:30
[2022-01-03] MEDS: LACTATED RINGERS 1,000 ML IV SCH ×2 (13:57→21:00)
[2022-01-03] MEDS: HYDROcodone/APAP 5 MG/325 MG (LORTAB) TAB PO PRN ×2 (15:21→20:59)
[2022-01-03] MEDS: inSUlin ASPART (NovoLOG) 1 UNIT/0.01 ML (CHARGE PER UNIT) SC SCH ×4 (15:25→21:00)
[2022-01-03] MEDS: CLINDAMYCIN 600 MG/50 ML IVPB 50 ML IV SCH (18:31)
--- NOTE | 2022-01-03 20:03 | OPERATIVE REPORT ---
DATE OF SERVICE: 01/03/2022 PREOPERATIVE DIAGNOSIS: Left labial abscess. POSTOPERATIVE DIAGNOSIS: Left labial abscess. PROCEDURE: Incision, drainage and debridement 9 x 3 x 4 cm, left labia. SURGEON: Imtiaz Navarrete DO VECTOR CONTROL ASSISTANT: Jose Braga assisted in retraction, dissection. ANESTHESIA: General. ESTIMATED BLOOD LOSS: Minimal. COMPLICATIONS: None. INDICATIONS: The patient is a 36-year-old female who had left labial abscess. It has continued to increase in size and caused discomfort. She has already had this slightly drained in the Emergency Department previously. She understands risks and benefits of procedure and wishes to proceed. Consent was signed in the chart. DESCRIPTION OF PROCEDURE: The patient was taken to the operating suite. She was placed in lithotomy position. She was prepped and draped in sterile fashion. Timeout was performed. Small opening in the left labia was present. This was probed and using the tract, skin was then opened up towards the pubic symphysis and then there is also a large pocket traveling down the left labia, which was then opened as well. There was a tract where it was significant purulent material erupted which culture was obtained. All this material was evacuated and debrided until down to clean, healthy tissue. Overall dimensions of the wound were 9 x 3 x 4 cm. Lots of irrigation and suction was performed. Hemostasis was achieved. Wound was then packed with iodoform gauze. The area was washed and dried and sterile bandage was applied. The patient tolerated procedure well without any complications. She was taken to recovery room in stable condition. The patient is being admitted for pain control and IV antibiotics. Job ID: [id number] DocumentID: [id number] Dictated Date: 01/03/2022 13:43:21 Shop Lead Date: 01/03/2022 20:02:45 Dictated By: IMTIAZ NAVARRETE DO HE[facility] SYSTEM[facility]an
[2022-01-03] MEDS ORDERED: DOCUSATE SODIUM 100 MG (COLACE) CAP PO ONE (20:27)
[2022-01-03] MEDS: DOCUSATE SODIUM 100 MG (COLACE) CAP PO SCH (20:59)
[2022-01-04] VITALS: BP 101/70
[2022-01-04] MEDS: CLINDAMYCIN 600 MG/50 ML IVPB 50 ML IV SCH ×3 (02:33→18:49)
[2022-01-04] MEDS: LACTATED RINGERS 1,000 ML IV SCH (02:34)
[2022-01-04] MEDS: HYDROcodone/APAP 5 MG/325 MG (LORTAB) TAB PO PRN ×3 (02:34→21:27)
[2022-01-04 03:57] VITALS: BP 100/68
[2022-01-04] MEDS: inSUlin ASPART (NovoLOG) 1 UNIT/0.01 ML (CHARGE PER UNIT) SC SCH ×8 (05:31→21:27)
--- NOTE | 2022-01-04 05:48 | Consultation - Hospitalist ---
HPI History of Present Illness: HPI/Chief Complaint CC: Labial abscess HPI: This is a 36 yr old clinic pt of [facility]. She is newly established with Dr. Lawrence who had to reschedule her appt due to surgery yesterday. She presented with left labial pain and was found to have an abscess status post incision and drainage by Dr. Navarrete. Placed on IV antibiotics. Pt's HgA1C was 15, she hasn't taken her insulin for 2 months. We will assure she gets her insulin called into the pharmacy when discharged. Source: patient Exam Limitations: no limitations Date Seen 01/04/22 Attending Physician Lopez Navarrete DO [facility] [place],[facility] Referring Physician Date of Admission Home Medications & Allergies Home Medications Reviewed patient Home Medication Reconciliation performed by pharmacy medication reconciliations mechanical assembly technician and/or nursing. Patients Allergies have been reviewed. Allergies Allergies Coded Allergies Nitrofurantoin Macrocrystal (Verified Allergy, Severe, LOCK JAW, 12/26/17) nitrofurantoin (Verified Allergy, Severe, LOCK JAW, 12/26/17) Penicillins (Verified Allergy, Unknown, hives, 12/28/17) metformin (Verified Adverse Reaction, Mild, DIARRHEA, 12/26/17) glimepiride (Verified Adverse Reaction, Unknown, DIARRHEA, 12/26/17) Past [id number]-Cozqgm Hx Patient Social History Marrital Status: single Employed/Student: unemployed Tobacco Use?: Yes Tobacco type used: Cigarettes Smoking Status: Current Everyday Smoker Smokeless Tobacco Frequency: Current Everyday User Use of E-Cig and/or Vaping dev: No Substance use?: No Alcohol Use?: No Pt feels they are or have been: No Immunizations Up To Date First/Initial COVID19 Vaccinat: 2020 Second COVID19 Vaccination Ulisses: 2020 Tetanus Booster (TDap): Unknown Seasonal Allergies Seasonal Allergies: No Current Status status: No status: No Advance Directives: No Primary Language: Solomon Islander Preferred Spoken Language: Solomon Islander Is interpretation needed?: No Implanted or Applied Medical D: None Past Medical History Surgeries: Section, Hysterectomy, Tubal Ligation Asthma 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, 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 0.0oz. 95.109609mn; 26.69 BMI Method:Stated General Appearance: No Apparent Distress, WD/WN, Chronically ill Eyes: Bilateral Eye Normal Inspection, Bilateral Eye PERRL HEENT: PERRL/EOMI, Normal ENT Inspection, Pharynx Normal Neck: Full Range of Motion, Normal Inspection, Non Tender, Supple, Carotid B ruit Respiratory: Chest Non Tender, Lungs Clear, Normal Breath Sounds, No Accessory Muscle Use, No Respiratory Distress Cardiovascular: Regular Rate, Rhythm, No Edema, No Gallop, No JVD, No Murmur, Normal Peripheral Pulses Gastrointestinal: Normal Bowel Sounds, No Organomegaly, No Pulsatile Mass, Non Tender, Soft Back: Normal Inspection, No CVA Tenderness, No Vertebral Tenderness Extremity: Normal Capillary Refill, Normal Inspection, Normal Range of Motion, Non Tender, No Calf Tenderness, No Pedal Edema Neurologic/Psychiatric: Alert, Oriented x3, No Motor/Sensory Deficits, Normal Mood/Affect Skin: Normal Color, Warm/Dry Lymphatic: No Adenopathy Results Results/Procedures Labs Laboratory Tests 01/04/22 05:40 Patient resulted labs reviewed. Assessment/Plan Assessment and Plan Assess & Plan/Chief Complaint Assessment: Left labial abscess status post incision and drainage by Dr. Navarrete Diabetes [id number] hemoglobin A1c 15% noncompliant with insulin Smoker Hyperlipidemia Hypertension Plan: IV antibiotics Insulin Pain control Diagnosis/Problems Diagnosis/Problems (1) Labial abscess Status: Acute (2) Insulin dependent diabetes mellitus Status: Chronic REBEKA BEACH DO January 04, 2022 05:48
[2022-01-04 06:12] LABS: BASOPHILS # (AUTO) 0.1 10^3/uL (0.0-0.1); BASOPHILS % (AUTO) 1 % (0-10); EOSINOPHILS # (AUTO) 0.4 10^3/uL (0.0-0.3); EOSINOPHILS % (AUTO) 4 % (0-10); HEMATOCRIT 38 % (35-52); HEMOGLOBIN 12.8 g/dL (11.5-16.0); LYMPHOCYTES # (AUTO) 2.5 10^3/uL (1.0-4.0); LYMPHOCYTES % (AUTO) 22 % (12-44); MEAN CORPUSCULAR HEMOGLOBIN 29 pg (25-34); MEAN CORPUSCULAR HGB CONC 34 g/dL (32-36); MEAN CORPUSCULAR VOLUME 87 fL (80-99); MEAN PLATELET VOLUME 9.7 fL (9.0-12.2); MONOCYTES # (AUTO) 0.6 10^3/uL (0.0-1.0); MONOCYTES % (AUTO) 5 % (0-12); NEUTROPHILS # (AUTO) 7.5 10^3/uL (1.8-7.8); NEUTROPHILS % (AUTO) 67 % (42-75); PLATELET COUNT 289 10^3/uL (130-400); WHITE BLOOD COUNT 11.3 10^3/uL (4.3-11.0)
[2022-01-04 06:21] LABS: CALCIUM 8.7 MG/DL (8.5-10.1)
[2022-01-04 06:22] LABS: TOTAL PROTEIN 6.4 GM/DL (6.4-8.2)
[2022-01-04 06:24] LABS: BILIRUBIN,TOTAL 0.2 MG/DL (0.1-1.0)
[2022-01-04 06:26] LABS: CREATININE SERUM 0.67 MG/DL (0.60-1.30)
[2022-01-04 07:23] VITALS: BP 99/70
[2022-01-04] MEDS: DOCUSATE SODIUM 100 MG (COLACE) CAP PO SCH ×2 (08:18→21:27)
[2022-01-04] MEDS: morphine INJ 4 MG/ML 1 ML (VIAL/SYRINGE) IVP PRN ×2 (10:00→15:35)
[2022-01-04] MEDS ORDERED: HYPOCHLOROUS ACID/NaCl (VASHE) 250 ML IR STA (10:01)
[2022-01-04 11:12] VITALS: BP 113/80
--- NOTE | 2022-01-04 13:09 | Wound Care Assessment ---
Wound Care Assessment Date Seen by Provider: January 04, 2022 Time Seen by Provider: 11:30 Chief Complaint Labial abscess HPI This pleasant 36 year old patient presents to the hospital with a 2 week h/o labial abscess. She notes that this appeared after shaving 2 weeks ago and has been worsening since. She was initially treated with Bactrim as outpatient (prior to I&D). When she failed to improved she was started on Clindamycin. She was taken to OR by Dr. Navarrete for I&D subsequently and was started on IV Clindamycin on admit. We do only have preliminary culture back but in addition to gram positive organisms, there do appear to be abundant gram negative rods as well. With her h/o DM2, I do think covering for these would be a good idea as well (especially with her continued pain and edema). She appears to have poorly controlled DM2 with FSBS in 300's during this admission. Meg is exquisitely tender on exam with significant cellulitis of the left labia majora. There is no streaking or fluctuance noted outside the area of concern. We had a long discussion on treatment options. Wound vac is a consideration but Meg declines today due to her significant pain. Once her infection is better controlled, this may be a consideration (if movement does not proclude placement). She is amenable to Vashe WTD twice daily to aide in infection control in addition to systemic antibiotic therapy. Past Medical History: Admits Diabetes Type II Smoking Status: Current Everyday Smoker Recreational Drug Use: No Alcohol Use: Denies Use Exam Vital Signs Date Time Temp Pulse Resp B/P (MAP) Pulse Ox O2 Delivery O2 Flow Rate FiO2 01/04/22 11:12 36.1 85 18 113/80 (91) 96 Room Air 01/03/22 12:35 3 Capillary Refill : General Appearance: WD/WN, moderate distress (Significant pain on exam) Cardiovascular: no edema Respiratory: no respiratory distress, no accessory muscle use Extremities: normal range of motion Skin: warm/dry Skin Problem Location: other (Left labia majora) Skin Character: abscess, drainage, erythema Please see nursing measurements for full details. The epithelialization is none, there is tunneling superiorly and no undermining, drainage is large and serosanguinous, granulation is none, necrotic is large and slough. The wound margins show epibole. There is induration and erythema in the periwound consistent with cellulitis Results Laboratory Tests 01/03/22 15:13: Mean Blood Glucose 387H, Hemoglobin A1c 15.1H 01/03/22 15:21: Glucometer 374H 01/03/22 20:03: Glucometer 359H 01/04/22 05:15: Glucometer 314H 01/04/22 05:40: White Blood Count 11.3H, Red Blood Count 4.35, Hemoglobin 12.8, Hematocrit 38, Mean Corpuscular Volume 87, Mean Corpuscular Hemoglobin 29, Mean Corpuscular Hemoglobin Concent 34, Red Cell Distribution Width 11.9, Platelet Count 289, Mean Platelet Volume 9.7, Immature Granulocyte % (Auto) 1, Neutrophils (%) (Auto) 67, Lymphocytes (%) (Auto) 22, Monocytes (%) (Auto) 5, Eosinophils (%) (Auto) 4, Basophils (%) (Auto) 1, Neutrophils # (Auto) 7.5, Lymphocytes # (Auto) 2.5, Monocytes # (Auto) 0.6, Eosinophils # (Auto) 0.4H, Basophils # (Auto) 0.1, Immature Granulocyte # (Auto) 0.1, Sodium Level 134L, Potassium Level 4.0, Chloride Level 99, Carbon Dioxide Level 23, Anion Gap 12, Blood Urea Nitrogen 10, Creatinine 0.67, Estimat Glomerular Filtration Rate 115, BUN/Creatinine Ratio 15, Glucose Level 329H, Calcium Level 8.7, Corrected Calcium 9.5, Total Bilirubin 0.2, Aspartate Amino Transf (AST/SGOT) 9, Alanine Aminotransferase (ALT/SGPT) 14, Alkaline Phosphatase 89, Total Protein 6.4, Albumin 3.0L 01/04/22 11:08: Glucometer 269H Microbiology 01/03/22 Gram Stain - Final, Resulted 01/03/22 Anaerobic Culture, Resulted Pending 01/03/22 Surgical Culture - Preliminary, Resulted Mixed Bacterial Allison Gram Negative Eugene Strep agalactiae Group B Strep Species, Gamma-Hemolytic 01/03/22 MRSA Screen - Final, Complete MRSA not isolated Microbiology 01/03/22 Gram Stain - Final, Resulted 01/03/22 Anaerobic Culture, Resulted Pending 01/03/22 Surgical Culture - Preliminary, Resulted Mixed Bacterial Allison Gram Negative Eugene Strep agalactiae Group B Strep Species, Gamma-Hemolytic 01/03/22 MRSA Screen - Final, Complete MRSA not isolated Assessment/Plan/Dx Assessment: 1. Left labial abscess (s/p I&D) 2. DM2 with poor glycemic control 3. Tobaccoism Plan: 1. Agree with systemic antibiotic therapy (target to cultures accordingly). I will add levaquin today empirically with GNR on preliminary culture (modify in future if indicated and transition to oral when possible) 2. Swtich to Vashe WTD dressings twice daily to aide in infection control. Cover with Allevyn bordered foam 3. Improved glycemic control per internal medicine (appreciate your help with this) 4. Smoking cessation is advisable 5. I would be happy to follow with Meg as an outpatient should this be necessary TRIPP MARQUES MD January 04, 2022 13:09
[2022-01-04 16:00] VITALS: BP 110/65
--- NOTE | 2022-01-04 17:21 | Progress Note - Surgery ---
Subjective Date Seen by a Provider: January 04, 2022 Time Seen by a Provider: 17:18 Subjective/Events-last exam Patient still with pain in the left labial region. Still some slight purulent drainage. Cultures pending. Denies any nausea vomiting fever sweats chills shortness of breath or chest pain. Objective Exam Vital Signs Date Time Temp Pulse Resp B/P (MAP) Pulse Ox O2 Delivery O2 Flow Rate FiO2 01/04/22 16:00 36.3 92 20 110/65 (80) 97 Room Air 01/04/22 11:12 36.1 85 18 113/80 (91) 96 Room Air 01/04/22 08:50 Room Air 01/04/22 07:23 36.0 95 18 99/70 (80) 95 Room Air 01/04/22 03:57 36.3 94 18 100/68 (79) 96 Room Air 01/04/22 00:00 36.1 91 16 101/70 (80) 95 Room Air 01/03/22 20:00 97 Room Air 01/03/22 19:47 36.7 96 17 102/62 (75) 97 Room Air 01/03/22 17:45 Room Air I & O 01/04/22 07:00 Intake Total 4210 ml Balance 4210 ml Capillary Refill : General Appearance: No Apparent Distress, Anxious HEENT: PERRL/EOMI, Normal ENT Inspection Neck: Normal Inspection, Non Tender Respiratory: Chest Non Tender, No Accessory Muscle Use, No Respiratory Distress Cardiovascular: Regular Rate, Rhythm, No JVD Gastrointestinal: non tender, soft Extremity: Normal Inspection, Non Tender Neurologic/Psychiatric: Alert, Oriented x3, No Motor/Sensory Deficits, Normal Mood/Affect Skin: Warm/Dry, Other (Left labia open wound slight purulent drainage, surrounding erythema female nurse present during exam.) Lymphatic: No Adenopathy Results Lab Laboratory Tests 01/03/22 20:03: Glucometer 359H 01/04/22 05:15: Glucometer 314H 01/04/22 05:40: White Blood Count 11.3H, Red Blood Count 4.35, Hemoglobin 12.8, Hematocrit 38, Mean Corpuscular Volume 87, Mean Corpuscular Hemoglobin 29, Mean Corpuscular Hemoglobin Concent 34, Red Cell Distribution Width 11.9, Platelet Count 289, Mean Platelet Volume 9.7, Immature Granulocyte % (Auto) 1, Neutrophils (%) (Auto) 67, Lymphocytes (%) (Auto) 22, Monocytes (%) (Auto) 5, Eosinophils (%) (Auto) 4, Basophils (%) (Auto) 1, Neutrophils # (Auto) 7.5, Lymphocytes # (Auto) 2.5, Monocytes # (Auto) 0.6, Eosinophils # (Auto) 0.4H, Basophils # (Auto) 0.1, Immature Granulocyte # (Auto) 0.1, Sodium Level 134L, Potassium Level 4.0, Chloride Level 99, Carbon Dioxide Level 23, Anion Gap 12, Blood Urea Nitrogen 10, Creatinine 0.67, Estimat Glomerular Filtration Rate 115, BUN/Creatinine Ratio 15, Glucose Level 329H, Calcium Level 8.7, Corrected Calcium 9.5, Total Bilirubin 0.2, Aspartate Amino Transf (AST/SGOT) 9, Alanine Aminotransferase (ALT/SGPT) 14, Alkaline Phosphatase 89, Total Protein 6.4, Albumin 3.0L 01/04/22 11:08: Glucometer 269H 01/04/22 15:29: Glucometer 260H Microbiology 01/03/22 Gram Stain - Final, Resulted 01/03/22 Anaerobic Culture, Resulted Pending 01/03/22 Surgical Culture - Preliminary, Resulted Mixed Bacterial Allison Gram Negative Eugene Strep agalactiae Group B Strep Species, Gamma-Hemolytic 01/03/22 MRSA Screen - Final, Complete MRSA not isolated Assessment/Plan Assessment/Plan Assessment/Plan Status post incision and drainage and debridement. Diabetes Tobacco use Patient encouraged tobacco use and controlled diabetes. Continue wound care, continue IV antibiotic therapy. Await cultures IMTIAZ PETER DO January 04, 2022 17:20
[2022-01-04 19:46] VITALS: BP 111/75
[2022-01-04] MEDS: metroNIDAZOLE 500MG/100ML IVPB 100 ML IV SCH (21:27)
[2022-01-05] VITALS (7 sets, daily range): BP systolic 98–125; BP diastolic 66–86
[2022-01-05] MEDS: HYDROcodone/APAP 5 MG/325 MG (LORTAB) TAB PO PRN ×4 (02:13→21:12)
[2022-01-05] MEDS: CLINDAMYCIN 600 MG/50 ML IVPB 50 ML IV SCH ×3 (02:13→18:27)
[2022-01-05] MEDS: inSUlin ASPART (NovoLOG) 1 UNIT/0.01 ML (CHARGE PER UNIT) SC SCH ×6 (05:18→21:13)
[2022-01-05] MEDS: metroNIDAZOLE 500MG/100ML IVPB 100 ML IV SCH ×3 (06:23→21:12)
[2022-01-05 06:40] LABS: BASOPHILS # (AUTO) 0.1 10^3/uL (0.0-0.1); BASOPHILS % (AUTO) 1 % (0-10); EOSINOPHILS # (AUTO) 0.4 10^3/uL (0.0-0.3); EOSINOPHILS % (AUTO) 4 % (0-10); HEMATOCRIT 39 % (35-52); HEMOGLOBIN 13.1 g/dL (11.5-16.0); LYMPHOCYTES # (AUTO) 2.7 10^3/uL (1.0-4.0); LYMPHOCYTES % (AUTO) 26 % (12-44); MEAN CORPUSCULAR HEMOGLOBIN 29 pg (25-34); MEAN CORPUSCULAR HGB CONC 33 g/dL (32-36); MEAN CORPUSCULAR VOLUME 88 fL (80-99); MEAN PLATELET VOLUME 10.1 fL (9.0-12.2); MONOCYTES # (AUTO) 0.5 10^3/uL (0.0-1.0); MONOCYTES % (AUTO) 5 % (0-12); NEUTROPHILS # (AUTO) 6.4 10^3/uL (1.8-7.8); NEUTROPHILS % (AUTO) 63 % (42-75); PLATELET COUNT 311 10^3/uL (130-400); WHITE BLOOD COUNT 10.1 10^3/uL (4.3-11.0)
[2022-01-05 07:00] LABS: ALBUMIN 3.2 GM/DL (3.2-4.5)
[2022-01-05 07:01] LABS: POTASSIUM 3.9 MMOL/L (3.6-5.0)
[2022-01-05 07:19] LABS: BILIRUBIN,TOTAL 0.2 MG/DL (0.1-1.0); CALCIUM 9.1 MG/DL (8.5-10.1); TOTAL PROTEIN 6.9 GM/DL (6.4-8.2)
[2022-01-05 07:21] LABS: CREATININE SERUM 0.64 MG/DL (0.60-1.30)
[2022-01-05] MEDS: DOCUSATE SODIUM 100 MG (COLACE) CAP PO SCH ×2 (08:30→21:12)
[2022-01-05] MEDS: morphine INJ 4 MG/ML 1 ML (VIAL/SYRINGE) IVP PRN ×2 (10:26→21:39)
--- NOTE | 2022-01-05 13:25 | Progress Note - Surgery ---
Subjective Date Seen by a Provider: January 05, 2022 Time Seen by a Provider: 12:45 Subjective/Events-last exam Feeling better. Less pain. Tolerated wound dressing change. Denies any nausea vomiting fever sweats chills shortness of breath or chest pain. Objective Exam Vital Signs Date Time Temp Pulse Resp B/P (MAP) Pulse Ox O2 Delivery O2 Flow Rate FiO2 01/05/22 11:11 36.3 87 18 115/81 (92) 93 Room Air 01/05/22 08:00 Room Air 01/05/22 07:39 36.4 95 16 109/77 (88) 93 Room Air 01/05/22 03:59 36.5 85 18 107/76 (86) 96 Room Air 01/05/22 00:01 36.4 98 18 104/74 (84) 94 Room Air 01/04/22 20:00 Room Air 01/04/22 19:46 36.0 103 20 111/75 (87) 96 Room Air 01/04/22 16:00 36.3 92 20 110/65 (80) 97 Room Air I & O 01/05/22 06:59 Intake Total 2160 ml Balance 2160 ml Capillary Refill : General Appearance: No Apparent Distress, WD/WN, Chronically ill HEENT: PERRL/EOMI, Normal ENT Inspection, Pharynx Normal Neck: Full Range of Motion, Normal Inspection, Non Tender, Supple, Carotid Bruit Respiratory: Chest Non Tender, No Accessory Muscle Use, No Respiratory Distress Cardiovascular: Regular Rate, Rhythm, No JVD, Normal Peripheral Pulses Gastrointestinal: non tender, soft Extremity: Normal Capillary Refill, Normal Inspection, Normal Range of Motion, Non Tender, No Calf Tenderness, No Pedal Edema Neurologic/Psychiatric: Alert, Oriented x3, No Motor/Sensory Deficits, Normal Mood/Affect Skin: Normal Color, Warm/Dry Lymphatic: No Adenopathy Other comments Left labial slightly less erythema no further extension no significant drainage female nurse present during exam Results Lab Laboratory Tests 01/04/22 15:29: Glucometer 260H 01/04/22 20:13: Glucometer 282H 01/05/22 05:15: Glucometer 259H, White Blood Count 10.1, Red Blood Count 4.48, Hemoglobin 13.1, Hematocrit 39, Mean Corpuscular Volume 88, Mean Corpuscular Hemoglobin 29, Mean Corpuscular Hemoglobin Concent 33, Red Cell Distribution Width 11.8, Platelet Count 311, Mean Platelet Volume 10.1, Immature Granulocyte % (Auto) 1, Neutrophils (%) (Auto) 63, Lymphocytes (%) (Auto) 26, Monocytes (%) (Auto) 5, E osinophils (%) (Auto) 4, Basophils (%) (Auto) 1, Neutrophils # (Auto) 6.4, Lymphocytes # (Auto) 2.7, Monocytes # (Auto) 0.5, Eosinophils # (Auto) 0.4H, Basophils # (Auto) 0.1, Immature Granulocyte # (Auto) 0.1, Sodium Level 134L, Potassium Level 3.9, Chloride Level 100, Carbon Dioxide Level 22, Anion Gap 12, Blood Urea Nitrogen 12, Creatinine 0.64, Estimat Glomerular Filtration Rate 117, BUN/Creatinine Ratio 19, Glucose Level 278H, Calcium Level 9.1, Corrected Calcium 9.7, Total Bilirubin 0.2, Aspartate Amino Transf (AST/SGOT) 9, Alanine Aminotransferase (ALT/SGPT) 14, Alkaline Phosphatase 90, Total Protein 6.9, Albumin 3.2 01/05/22 11:07: Glucometer 287H Microbiology 01/03/22 Gram Stain - Final, Resulted 01/03/22 Anaerobic Culture, Resulted Pending 01/03/22 Surgical Culture - Preliminary, Resulted Mixed Bacterial Allison Gram Negative Eugene Strep agalactiae Group B Strep Species, Gamma-Hemolytic 01/03/22 MRSA Screen - Final, Complete MRSA not isolated Assessment/Plan Assessment/Plan Assessment/Plan Status post incision and drainage and debridement. Diabetes Tobacco use Patient encouraged tobacco use and controlled diabetes. Continue wound care, continue IV antibiotic therapy. Await cultures IMTIAZ PETER DO January 05, 2022 13:25
[2022-01-05] MEDS: inSUlin (REGULAR) HUMAN 1 UNIT/0.01 ML (CHARGE PER UNIT) SC SCH ×3 (14:04→21:13)
--- NOTE | 2022-01-05 18:28 | Progress Note - Hospitalist ---
MICA BURGOS 01/05/22 1828: Subjective HPI/CC On Admission Date Seen by Provider: January 05, 2022 Time Seen by Provider: 11:15 CC: Labial abscess HPI: This is a 36 yr old clinic pt of [facility]. She is newly established with Dr. Lawrence who had to reschedule her appt due to surgery yesterday. She presented with left labial pain and was found to have an abscess status post incision and drainage by Dr. Navarrete. Placed on IV antibiotics. Pt's HgA1C was 15, she hasn't taken her insulin for 2 months. We will assure she gets her insulin called into the pharmacy when discharged. Subjective/Events-last exam PT was standing in her room this morning. She was doing well and denied any changes overnight. She is not having fevers or chills. She denies SOB or chest pains. She is status post I&D of her left labial abscess on 01/03/22, which she reports is improving. Review of Systems General: No Chills; Other (no fever) HEENT: No Head Aches, No Visual Changes Pulmonary: No Dyspnea, No Cough Cardiovascular: No: Chest Pain, Palpitations Gastrointestinal: No: Nausea, Vomiting Genitourinary: No Dysuria, No Hematuria Musculoskeletal: No: neck pain, shoulder pain Neurological: No: Change in speech, Confusion Objective Exam Vital Signs Vital Signs Date Time Temp Pulse Resp B/P (MAP) Pulse Ox O2 Delivery O2 Flow Rate FiO2 01/05/22 15:50 36.2 98 20 125/86 (99) 96 Room Air 01/03/22 12:35 3 Capillary Refill : General Appearance: No Apparent Distress, WD/WN HEENT: PERRL/EOMI, Moist Mucous Membranes Neck: Full Range of Motion, Normal Inspection Respiratory: Chest Non Tender, Lungs Clear, Normal Breath Sounds, No Accessory Muscle Use, No Respiratory Distress Cardiovascular: Regular Rate, Rhythm, No Edema, No Murmur, Normal Peripheral Pulses Gastrointestinal: Normal Bowel Sounds, No Organomegaly, No Pulsatile Mass, Non Tender, Soft Extremity: Normal Inspection, Normal Range of Motion, Non Tender, No Calf Tenderness, No Pedal Edema Neurologic/Psychiatric: Alert, Oriented x3, No Motor/Sensory Deficits Skin: Normal Color, Warm/Dry Results/Procedures Lab Laboratory Tests 01/05/22 05:15 Patient resulted labs reviewed. Assessment/Plan Assessment and Plan Assess & Plan/Chief Complaint Assessment: Left labial abscess, status post I&D by Dr. Navarrete on 01/03/22 DM noncompliant with insulin Tobacco use disorder HLP HTN Plan: Left labial abscess, status post I&D by Dr. Navarrete on 01/03/22 PT reports improvement. Surgery following. Monitor for evidence of worsening infection and/ or sepsis. Continue IV Levofloxacin, Clindamycin, and Metronidazole. Medical pain management as needed. DM noncompliant with insulin Continue sliding scale insulin. Recommend insulin compliance once discharged. Tobacco use disorder Recommend smoking cessation. HLP HTN Continue home medications. BREANA BEACH DO 01/06/22 1441: Subjective Subjective/Events-last exam Pt doing about the same Pain is still present Appreciate Dr. Navarrete IV antibiotics maintained Blood sugars are still high but better with insulin HgA1C of 15 indicating extremely poor control Review of Systems Gastrointestinal: Other (Labial pain) Objective Exam General Appearance: No Apparent Distress, WD/WN, Chronically ill Respiratory: Lungs Clear, Normal Breath Sounds Cardiovascular: Regular Rate, Rhythm Neurologic/Psychiatric: Alert, Oriented x3, No Motor/Sensory Deficits, Normal Mood/Affect Assessment/Plan Assessment and Plan Assess & Plan/Chief Complaint IV antibiotics Increase insulin Supervisory-Addendum Brief Verification & Attestation Participated in pt care: history, MDM, physical Personally performed: exam, history, MDM, supervision of care Care discussed with: Medical Student Procedures: n/a Results interpretation: Verified all documentation Verification and Attestation of Medical Student E/M Service A medical student performed and documented this service in my presence. I reviewed and verified all information documented by the medical student and made modifications to such information, when appropriate. I personally performed the physical exam and medical decision making. [place] January 06, 2022,14:41 MICA BURGOS January 05, 2022 18:28 BREANA BEACH DO January 06, 2022 14:41
[2022-01-06] MEDS: CLINDAMYCIN 600 MG/50 ML IVPB 50 ML IV SCH ×3 (02:15→18:17)
[2022-01-06 03:41] VITALS: BP 111/77
[2022-01-06] MEDS: HYDROcodone/APAP 5 MG/325 MG (LORTAB) TAB PO PRN ×3 (03:45→18:13)
--- NOTE | 2022-01-06 05:12 | Progress Note - Hospitalist ---
Subjective HPI/CC On Admission Date Seen by Provider: January 06, 2022 Time Seen by Provider: 05:00 CC: Labial abscess HPI: This is a 36 yr old clinic pt of [facility]. She is newly established with Dr. Lawrence who had to reschedule her appt due to surgery yesterday. She presented with left labial pain and was found to have an abscess status post incision and drainage by Dr. Navarrete. Placed on IV antibiotics. Pt's HgA1C was 15, she hasn't taken her insulin for 2 months. We will assure she gets her insulin called into the pharmacy when discharged. Subjective/Events-last exam Pt doing about the same Pain is controlled IV antibiotics Pain medication scheduled Increased insulin Review of Systems General: Fatigue, Malaise Gastrointestinal: Abdominal Pain Objective Exam Vital Signs Vital Signs Date Time Temp Pulse Resp B/P (MAP) Pulse Ox O2 Delivery O2 Flow Rate FiO2 01/06/22 16:00 36.2 101 20 112/76 (88) 96 Room Air 01/03/22 12:35 3 Capillary Refill : General Appearance: No Apparent Distress, WD/WN, Chronically ill Respiratory: Lungs Clear, Normal Breath Sounds Cardiovascular: Regular Rate, Rhythm Neurologic/Psychiatric: Alert, Oriented x3 Results/Procedures Lab Laboratory Tests 01/06/22 06:02 Patient resulted labs reviewed. Assessment/Plan Assessment and Plan Assess & Plan/Chief Complaint Assessment: Left labial abscess status post incision and drainage by Dr. Navarrete Diabetes [id number] hemoglobin A1c 15% noncompliant with insulin Smoker Hyperlipidemia Hypertension Plan: IV antibiotics Insulin Pain control 01/06/2022: Increase insulin Diagnosis/Problems Diagnosis/Problems (1) Labial abscess Status: Acute (2) Insulin dependent diabetes mellitus Status: Chronic REBEKA BEACH DO January 06, 2022 05:12
[2022-01-06] MEDS: inSUlin ASPART (NovoLOG) 1 UNIT/0.01 ML (CHARGE PER UNIT) SC SCH ×4 (05:29→22:17)
[2022-01-06] MEDS: morphine INJ 4 MG/ML 1 ML (VIAL/SYRINGE) IVP PRN ×2 (05:59→18:13)
[2022-01-06] MEDS: metroNIDAZOLE 500MG/100ML IVPB 100 ML IV SCH ×3 (06:00→22:20)
[2022-01-06 06:20] LABS: BASOPHILS # (AUTO) 0.1 10^3/uL (0.0-0.1); BASOPHILS % (AUTO) 1 % (0-10); EOSINOPHILS # (AUTO) 0.4 10^3/uL (0.0-0.3); EOSINOPHILS % (AUTO) 4 % (0-10); HEMATOCRIT 38 % (35-52); HEMOGLOBIN 12.6 g/dL (11.5-16.0); LYMPHOCYTES # (AUTO) 2.6 10^3/uL (1.0-4.0); LYMPHOCYTES % (AUTO) 27 % (12-44); MEAN CORPUSCULAR HEMOGLOBIN 29 pg (25-34); MEAN CORPUSCULAR HGB CONC 33 g/dL (32-36); MEAN CORPUSCULAR VOLUME 87 fL (80-99); MEAN PLATELET VOLUME 9.5 fL (9.0-12.2); MONOCYTES # (AUTO) 0.5 10^3/uL (0.0-1.0); MONOCYTES % (AUTO) 5 % (0-12); NEUTROPHILS # (AUTO) 6.3 10^3/uL (1.8-7.8); NEUTROPHILS % (AUTO) 63 % (42-75); PLATELET COUNT 322 10^3/uL (130-400); WHITE BLOOD COUNT 9.9 10^3/uL (4.3-11.0)
[2022-01-06 06:24] LABS: ALBUMIN 3.2 GM/DL (3.2-4.5)
[2022-01-06 06:25] LABS: CALCIUM 9.2 MG/DL (8.5-10.1)
--- NOTE | 2022-01-06 06:26 | Progress Note - Surgery ---
Subjective Date Seen by a Provider: January 06, 2022 Time Seen by a Provider: 06:26 Subjective/Events-last exam Still with pain to the area of the left labia. Has a little bit of drainage still. Feels it is slowly improving. Denies any nausea vomiting fever sweats chills shortness of breath or chest pain at this time. Objective Exam Vital Signs Date Time Temp Pulse Resp B/P (MAP) Pulse Ox O2 Delivery O2 Flow Rate FiO2 01/06/22 03:41 36.1 94 20 111/77 (88) 97 Room Air 01/05/22 23:51 36.1 93 20 98/66 (77) 95 Room Air 01/05/22 20:27 Room Air 01/05/22 19:21 36.1 87 18 104/72 (83) 98 Room Air 01/05/22 15:50 36.2 98 20 125/86 (99) 96 Room Air 01/05/22 11:11 36.3 87 18 115/81 (92) 93 Room Air 01/05/22 08:00 Room Air 01/05/22 07:39 36.4 95 16 109/77 (88) 93 Room Air I & O 01/06/22 07:00 Intake Total 3230 ml Output Total 3790 ml Balance -560 ml Capillary Refill : General Appearance: No Apparent Distress, WD/WN HEENT: PERRL/EOMI, Moist Mucous Membranes Neck: Full Range of Motion, Normal Inspection Respiratory: Chest Non Tender, Lungs Clear, Normal Breath Sounds, No Accessory Muscle Use, No Respiratory Distress Cardiovascular: Regular Rate, Rhythm, No Edema, No Murmur, Normal Peripheral Pulses Gastrointestinal: non tender, soft Extremity: Normal Inspection, Normal Range of Motion, Non Tender, No Calf Tenderness, No Pedal Edema Neurologic/Psychiatric: Alert, Oriented x3, No Motor/Sensory Deficits Skin: Warm/Dry, Other (Open left labial wound examined with female nurse. Slight purulent drainage still present less erythema less induration no fluctuance) Lymphatic: No Adenopathy Results Lab Laboratory Tests 01/05/22 11:07: Glucometer 287H 01/05/22 13:58: Glucometer 265H 01/05/22 15:24: Glucometer 228H 01/05/22 20:19: Glucometer 202H 01/06/22 05:24: Glucometer 145H 01/06/22 06:02: Sodium Level 139, Potassium Level 4.0, Chloride Level 105, Calcium Level 9.2, Corrected Calcium 9.8, Albumin 3.2 Microbiology 01/03/22 Gram Stain - Final, Resulted 01/03/22 Anaerobic Culture, Resulted Pending 01/03/22 Surgical Culture - Preliminary, Resulted Gram Pos Mixed Bacterial Allison Klebsiella oxytoca Strep agalactiae Group B Enterococcus faecalis 01/03/22 MRSA Screen - Final, Complete MRSA not isolated Assessment/Plan Assessment/Plan Assessment/Plan Status post incision and drainage and debridement. Diabetes Tobacco use Patient encouraged tobacco use and controlled diabetes. Continue wound care, continue IV antibiotic therapy. Await cultures IMTIAZ PETER DO January 06, 2022 06:26
[2022-01-06 06:27] LABS: TOTAL PROTEIN 6.8 GM/DL (6.4-8.2)
[2022-01-06 06:28] LABS: BILIRUBIN,TOTAL 0.2 MG/DL (0.1-1.0)
[2022-01-06 06:30] LABS: CREATININE SERUM 0.61 MG/DL (0.60-1.30)
[2022-01-06 07:55] VITALS: BP 109/71
[2022-01-06] MEDS: inSUlin (REGULAR) HUMAN 1 UNIT/0.01 ML (CHARGE PER UNIT) SC SCH ×4 (08:07→22:16)
[2022-01-06] MEDS: DOCUSATE SODIUM 100 MG (COLACE) CAP PO SCH ×2 (08:08→22:18)
[2022-01-06 11:01] VITALS: BP 119/81
[2022-01-06 16:00] VITALS: BP 112/76
[2022-01-06 20:00] VITALS: BP 113/78
[2022-01-06] MEDS: ENOXAPARIN 40 MG/0.4 ML (LOVENOX) SYR SC SCH (22:17)
[2022-01-07] VITALS: BP 107/64
[2022-01-07] MEDS: HYDROcodone/APAP 5 MG/325 MG (LORTAB) TAB PO PRN ×3 (00:01→20:58)
[2022-01-07] MEDS: CLINDAMYCIN 600 MG/50 ML IVPB 50 ML IV SCH ×3 (03:17→18:38)
--- NOTE | 2022-01-07 05:37 | Progress Note - Hospitalist ---
Subjective HPI/CC On Admission Date Seen by Provider: January 07, 2022 Time Seen by Provider: 09:00 CC: Labial abscess HPI: This is a 36 yr old clinic pt of [facility]. She is newly established with Dr. Lawrence who had to reschedule her appt due to surgery yesterday. She presented with left labial pain and was found to have an abscess status post incision and drainage by Dr. Navarrete. Placed on IV antibiotics. Pt's HgA1C was 15, she hasn't taken her insulin for 2 months. We will assure she gets her insulin called into the pharmacy when discharged. Subjective/Events-last exam Pt is doing a lot better Needs two more days of IV antibiotics per Dr. Navarrete Insulin administration is working great for his sugars Review of Systems General: Fatigue, Malaise Objective Exam Vital Signs Vital Signs Date Time Temp Pulse Resp B/P (MAP) Pulse Ox O2 Delivery O2 Flow Rate FiO2 01/08/22 03:55 36.2 88 18 92/64 (73) 96 Room Air 01/03/22 12:35 3 Capillary Refill : General Appearance: No Apparent Distress, WD/WN, Chronically ill Respiratory: Lungs Clear, Normal Breath Sounds Cardiovascular: Regular Rate, Rhythm Neurologic/Psychiatric: Alert, Oriented x3, No Motor/Sensory Deficits, Normal Mood/Affect Results/Procedures Lab Laboratory Tests 01/08/22 05:21 Patient resulted labs reviewed. Assessment/Plan Assessment and Plan Assess & Plan/Chief Complaint Assessment: Left labial abscess status post incision and drainage by Dr. Navarrete Diabetes [id number] hemoglobin A1c 15% noncompliant with insulin Smoker Hyperlipidemia Hypertension Plan: IV antibiotics Insulin Pain control 01/06/2022: Increase insulin 01/07/2022: Maintain insulin Ambulate Diagnosis/Problems Diagnosis/Problems (1) Labial abscess Status: Acute (2) Insulin dependent diabetes mellitus Status: Chronic REBEKA BEACH DO January 07, 2022 05:37
[2022-01-07] MEDS: inSUlin ASPART (NovoLOG) 1 UNIT/0.01 ML (CHARGE PER UNIT) SC SCH ×4 (05:48→20:48)
[2022-01-07 05:51] LABS: BASOPHILS # (AUTO) 0.1 10^3/uL (0.0-0.1); BASOPHILS % (AUTO) 1 % (0-10); EOSINOPHILS # (AUTO) 0.3 10^3/uL (0.0-0.3); EOSINOPHILS % (AUTO) 4 % (0-10); HEMATOCRIT 39 % (35-52); HEMOGLOBIN 12.5 g/dL (11.5-16.0); LYMPHOCYTES # (AUTO) 2.7 10^3/uL (1.0-4.0); LYMPHOCYTES % (AUTO) 33 % (12-44); MEAN CORPUSCULAR HEMOGLOBIN 28 pg (25-34); MEAN CORPUSCULAR HGB CONC 32 g/dL (32-36); MEAN CORPUSCULAR VOLUME 88 fL (80-99); MEAN PLATELET VOLUME 9.4 fL (9.0-12.2); MONOCYTES # (AUTO) 0.4 10^3/uL (0.0-1.0); MONOCYTES % (AUTO) 6 % (0-12); NEUTROPHILS # (AUTO) 4.4 10^3/uL (1.8-7.8); NEUTROPHILS % (AUTO) 55 % (42-75); PLATELET COUNT 296 10^3/uL (130-400); WHITE BLOOD COUNT 7.9 10^3/uL (4.3-11.0)
[2022-01-07 05:56] LABS: ALBUMIN 3.1 GM/DL (3.2-4.5)
[2022-01-07 05:57] LABS: POTASSIUM 3.7 MMOL/L (3.6-5.0)
[2022-01-07 05:58] LABS: CALCIUM 9.1 MG/DL (8.5-10.1)
[2022-01-07 05:59] LABS: TOTAL PROTEIN 6.7 GM/DL (6.4-8.2)
[2022-01-07 06:01] LABS: BILIRUBIN,TOTAL 0.2 MG/DL (0.1-1.0)
[2022-01-07 06:03] LABS: CREATININE SERUM 0.71 MG/DL (0.60-1.30)
[2022-01-07] MEDS: metroNIDAZOLE 500MG/100ML IVPB 100 ML IV SCH (06:33)
[2022-01-07] MEDS: inSUlin (REGULAR) HUMAN 1 UNIT/0.01 ML (CHARGE PER UNIT) SC SCH ×4 (06:33→20:48)
[2022-01-07 07:41] VITALS: BP 119/87
[2022-01-07] MEDS: DOCUSATE SODIUM 100 MG (COLACE) CAP PO SCH ×2 (08:08→20:58)
[2022-01-07] MEDS: morphine INJ 4 MG/ML 1 ML (VIAL/SYRINGE) IVP PRN ×2 (10:55→21:29)
[2022-01-07] MEDS: ENOXAPARIN 40 MG/0.4 ML (LOVENOX) SYR SC SCH (20:47)
--- NOTE | 2022-01-07 21:15 | Progress Note - Surgery ---
Subjective Date Seen by a Provider: January 07, 2022 Time Seen by a Provider: 08:35 Subjective/Events-last exam Patient still with some pain in the left groin. Difficult to tolerate dressing changes. Less erythema slowly improving no new complaints. Denies any nausea vomiting fever sweats chills shortness of breath or chest pain. Objective Exam Vital Signs Date Time Temp Pulse Resp B/P (MAP) Pulse Ox O2 Delivery O2 Flow Rate FiO2 01/07/22 08:33 Room Air 01/07/22 07:41 35.9 98 18 119/87 (98) 97 Room Air 01/07/22 00:31 36.4 01/07/22 00:01 36.4 01/07/22 00:00 36.4 90 22 107/64 (78) 96 Room Air I & O 01/07/22 07:00 Intake Total 3440 ml Output Total 3352 ml Balance 88 ml Capillary Refill : General Appearance: No Apparent Distress, WD/WN, Chronically ill HEENT: PERRL/EOMI, Moist Mucous Membranes Neck: Full Range of Motion, Normal Inspection Respiratory: Chest Non Tender, No Accessory Muscle Use, No Respiratory Distress Cardiovascular: Regular Rate, Rhythm, No JVD Gastrointestinal: non tender, soft Extremity: Normal Inspection, Normal Range of Motion, Non Tender, No Calf Tenderness, No Pedal Edema Neurologic/Psychiatric: Alert, Oriented x3 Skin: Warm/Dry, Other (Open left labial wound examined with female nurse. Minimal purulent drainage present less erythema less induration no fluctuance) Lymphatic: No Adenopathy Results Lab Laboratory Tests 01/07/22 04:55: Glucometer 156H 01/07/22 05:32: White Blood Count 7.9, Red Blood Count 4.40, Hemoglobin 12.5, Hematocrit 39, Mean Corpuscular Volume 88, Mean Corpuscular Hemoglobin 28, Mean Corpuscular Hemoglobin Concent 32, Red Cell Distribution Width 11.9, Platelet Count 296, Mean Platelet Volume 9.4, Immature Granulocyte % (Auto) 1, Neutrophils (%) (Auto) 55, Lymphocytes (%) (Auto) 33, Monocytes (%) (Auto) 6, Eosinophils (%) (Auto) 4, Basophils (%) (Auto) 1, Neutrophils # (Auto) 4.4, Lymphocytes # (Auto) 2.7, Monocytes # (Auto) 0.4, Eosinophils # (Auto) 0.3, Basophils # (Auto) 0.1, Immature Granulocyte # (Auto) 0.1, Sodium Level 137, Potassium Level 3.7, Chloride Level 103, Carbon Dioxide Level 22, Anion Gap 12, Blood Urea Nitrogen 19H, Creatinine 0.71, Estimat Glomerular Filtration Rate 112, BUN/Creatinine Ratio 27, Glucose Level 168H, Calcium Level 9.1, Corrected Calcium 9.8, Total Bilirubin 0.2, Aspartate Amino Transf (AST/SGOT) 16, Alanine Aminotransferase (ALT/SGPT) 14, Alkaline Phosphatase 75, Total Protein 6.7, Albumin 3.1L 01/07/22 10:19: Glucometer 177H 01/07/22 16:24: Glucometer 238H 01/07/22 20:06: Glucometer 270H Microbiology 01/03/22 Gram Stain - Final, Complete 01/03/22 Anaerobic Culture - Final, Complete No anaerobes isolated 01/03/22 Surgical Culture - Final, Complete Gram Pos Mixed Bacterial Allison Klebsiella oxytoca Strep agalactiae Group B Enterococcus faecalis Lactobacillus jensenii 01/03/22 MRSA Screen - Final, Complete MRSA not isolated Assessment/Plan Assessment/Plan Assessment/Plan Status post incision and drainage and debridement. Diabetes Tobacco use Patient encouraged tobacco use and controlled diabetes. Continue wound care, continue IV antibiotic therapy. Pain control. IMTIAZ PETER DO January 07, 2022 21:15
[2022-01-08 00:17] VITALS: BP 106/74
[2022-01-08] MEDS: HYDROcodone/APAP 5 MG/325 MG (LORTAB) TAB PO PRN ×3 (01:33→21:02)
[2022-01-08] MEDS: CLINDAMYCIN 600 MG/50 ML IVPB 50 ML IV SCH ×2 (03:06→11:15)
[2022-01-08 03:55] VITALS: BP 92/64
[2022-01-08 05:31] LABS: BASOPHILS # (AUTO) 0.1 10^3/uL (0.0-0.1); BASOPHILS % (AUTO) 1 % (0-10); EOSINOPHILS # (AUTO) 0.6 10^3/uL (0.0-0.3); EOSINOPHILS % (AUTO) 5 % (0-10); HEMATOCRIT 42 % (35-52); HEMOGLOBIN 13.9 g/dL (11.5-16.0); LYMPHOCYTES # (AUTO) 3.5 10^3/uL (1.0-4.0); LYMPHOCYTES % (AUTO) 34 % (12-44); MEAN CORPUSCULAR HEMOGLOBIN 29 pg (25-34); MEAN CORPUSCULAR HGB CONC 33 g/dL (32-36); MEAN CORPUSCULAR VOLUME 88 fL (80-99); MEAN PLATELET VOLUME 9.3 fL (9.0-12.2); MONOCYTES # (AUTO) 0.5 10^3/uL (0.0-1.0); MONOCYTES % (AUTO) 4 % (0-12); NEUTROPHILS # (AUTO) 5.7 10^3/uL (1.8-7.8); NEUTROPHILS % (AUTO) 54 % (42-75); PLATELET COUNT 340 10^3/uL (130-400); WHITE BLOOD COUNT 10.4 10^3/uL (4.3-11.0)
--- NOTE | 2022-01-08 05:52 | Progress Note - Hospitalist ---
Subjective HPI/CC On Admission Date Seen by Provider: January 08, 2022 Time Seen by Provider: 09:00 CC: Labial abscess HPI: This is a 36 yr old clinic pt of [facility]. She is newly established with Dr. Lawrence who had to reschedule her appt due to surgery yesterday. She presented with left labial pain and was found to have an abscess status post incision and drainage by Dr. Navarrete. Placed on IV antibiotics. Pt's HgA1C was 15, she hasn't taken her insulin for 2 months. We will assure she gets her insulin called into the pharmacy when discharged. Subjective/Events-last exam Pt is doing a lot better No pain is reported Checked meds and labs Sent all of her insulin and pen needles to [facility] in case she is discharged by Dr. Navarrete today Review of Systems General: Fatigue, Malaise Objective Exam Vital Signs Vital Signs Date Time Temp Pulse Resp B/P (MAP) Pulse Ox O2 Delivery O2 Flow Rate FiO2 01/09/22 04:33 36.1 94 18 101/72 (82) 95 Room Air 01/03/22 12:35 3 Capillary Refill : General Appearance: No Apparent Distress, WD/WN, Chronically ill Respiratory: Lungs Clear, Normal Breath Sounds Cardiovascular: Regular Rate, Rhythm Neurologic/Psychiatric: Alert, Oriented x3 Results/Procedures Lab Laboratory Tests 01/09/22 05:11 Patient resulted labs reviewed. Assessment/Plan Assessment and Plan Assess & Plan/Chief Complaint Assessment: Left labial abscess status post incision and drainage by Dr. Navarrete Diabetes [id number] hemoglobin A1c 15% noncompliant with insulin Smoker Hyperlipidemia Hypertension Plan: IV antibiotics Insulin Pain control 01/06/2022: Increase insulin 01/07/2022: Maintain insulin Ambulate 01/08/2022: Supportive care Sent insulin into pharmacy Diagnosis/Problems Diagnosis/Problems (1) Labial abscess Status: Acute (2) Insulin dependent diabetes mellitus Status: Chronic REBEKA BEACH DO January 08, 2022 05:52
[2022-01-08 05:57] LABS: ALBUMIN 3.4 GM/DL (3.2-4.5); BILIRUBIN,TOTAL 0.2 MG/DL (0.1-1.0); CALCIUM 9.9 MG/DL (8.5-10.1); CREATININE SERUM 0.68 MG/DL (0.60-1.30); POTASSIUM 4.2 MMOL/L (3.6-5.0); TOTAL PROTEIN 7.3 GM/DL (6.4-8.2)
[2022-01-08] MEDS: inSUlin ASPART (NovoLOG) 1 UNIT/0.01 ML (CHARGE PER UNIT) SC SCH ×4 (06:07→21:02)
[2022-01-08] MEDS: inSUlin (REGULAR) HUMAN 1 UNIT/0.01 ML (CHARGE PER UNIT) SC SCH ×4 (06:11→21:02)
[2022-01-08 07:30] VITALS: BP 90/60
[2022-01-08] MEDS: DOCUSATE SODIUM 100 MG (COLACE) CAP PO SCH ×2 (08:02→21:01)
[2022-01-08] MEDS ORDERED: INSU100I51 SQ (10:05)
[2022-01-08] MEDS ORDERED: INSU100I29 SQ (10:05)
[2022-01-08] MEDS ORDERED: PEN-53 MC (10:05)
[2022-01-08] MEDS: morphine INJ 4 MG/ML 1 ML (VIAL/SYRINGE) IVP PRN ×3 (10:15→21:26)
--- NOTE | 2022-01-08 16:42 | Wound Care Assessment ---
Wound Care Assessment Date Seen by Provider: January 08, 2022 Time Seen by Provider: 16:37 Chief Complaint Labial abscess HPI This pleasant 36 year old patient presents to the hospital with a 2 week h/o labial abscess. She notes that this appeared after shaving 2 weeks ago and has been worsening since. She was initially treated with Bactrim as outpatient (prior to I&D). When she failed to improved she was started on Clindamycin. She was taken to OR by Dr. Navarrete for I&D subsequently and was started on IV Clindamycin on admit. We did add Levaquin with recent culture results and her erythema, pain and induration are greatly improved today. Of note, there is also enterococcus on her culture. She is not currently on antibiotics to cover this but she is clinically improved. I did discuss with Dr. Navarrete and he plans to discuss with pharmacy. Linezolid would cover but unfortunately would likely interact with several of her medications. Will await input (especially with clinical improvement). She appears to have poorly controlled DM2 with FSBS in 30 0's during this admission. IM is working toward improved glycemic control. Meg is exquisitely tender on exam but greatly improved from admit. She seems to be doing well with current wound care orders. She is complaining of a yeast infection today. I will add Diflucan. Past Medical History: Admits Diabetes Type II Smoking Status: Current Everyday Smoker Recreational Drug Use: No Alcohol Use: Denies Use Exam Vital Signs Date Time Temp Pulse Resp B/P (MAP) Pulse Ox O2 Delivery O2 Flow Rate FiO2 01/08/22 07:30 36.7 85 18 90/60 (70) 98 Room Air 01/03/22 12:35 3 Capillary Refill : General Appearance: WD/WN, no apparent distress Cardiovascular: no edema Respiratory: no respiratory distress, no accessory muscle use Extremities: normal range of motion, non-tender, no pedal edema Neurologic/Psychiatric: alert, normal mood/affect, oriented x 3 Skin Character: abscess, drainage, erythema Results Laboratory Tests 01/07/22 20:06: Glucometer 270H 01/08/22 05:21: White Blood Count 10.4, Red Blood Count 4.81, Hemoglobin 13.9, Hematocrit 42, Mean Corpuscular Volume 88, Mean Corpuscular Hemoglobin 29, Mean Corpuscular Hemoglobin Concent 33, Red Cell Distribution Width 11.8, Platelet Count 340, Mean Platelet Volume 9.3, Immature Granulocyte % (Auto) 1, Neutrophils (%) (Auto) 54, Lymphocytes (%) (Auto) 34, Monocytes (%) (Auto) 4, Eosinophils (%) (Auto) 5, Basophils (%) (Auto) 1, Neutrophils # (Auto) 5.7, Lymphocytes # (Auto) 3.5, Monocytes # (Auto) 0.5, Eosinophils # (Auto) 0.6H, Basophils # (Auto) 0.1, Immature Granulocyte # (Auto) 0.1, Sodium Level 138, Potassium Level 4.2, Chloride Level 103, Carbon Dioxide Level 22, Anion Gap 13, Blood Urea Nitrogen 22H, Creatinine 0.68, Estimat Glomerular Filtration Rate 115, BUN/Creatinine Ratio 32, Glucose Level 153H, Calcium Level 9.9, Corrected Calcium 10.4H, Total Bilirubin 0.2, Aspartate Amino Transf (AST/SGOT) 25, Alanine Aminotransferase (ALT/SGPT) 24, Alkaline Phosphatase 83, Total Protein 7.3, Albumin 3.4 01/08/22 10:44: Glucometer 181H Microbiology 01/03/22 Gram Stain - Final, Complete 01/03/22 Anaerobic Culture - Final, Complete No anaerobes isolated 01/03/22 Surgical Culture - Final, Complete Gram Pos Mixed Bacterial Allison Klebsiella oxytoca Strep agalactiae Group B Enterococcus faecalis Lactobacillus jensenii 01/03/22 MRSA Screen - Final, Complete MRSA not isolated Assessment/Plan/Dx Assessment: 1. Left labial abscess (s/p I&D) 2. DM2 with poor glycemic control 3. Tobaccoism 4. Vaginal candidiasis Plan: 1. Agree with systemic antibiotic therapy (target to cultures accordingly). Clinically improving. Will await pharm D input. Add diflucan for candidiasis. 2. Continue Vashe WTD dressings twice daily to aide in infection control. Cover with Allevyn bordered foam 3. Improved glycemic control per internal medicine (appreciate your help with this) 4. Smoking cessation is advisable 5. I would be happy to follow with Meg as an outpatient should this be necessary TRIPP MARQUES MD January 08, 2022 16:42
[2022-01-08] MEDS: fluCOnazole (DIFLUCAN) 100 MG TAB PO SCH (17:21)
--- NOTE | 2022-01-08 18:27 | Progress Note - Surgery ---
Subjective Date Seen by a Provider: January 08, 2022 Time Seen by a Provider: 18:24 Subjective/Events-last exam Patient having less pain. Tolerating dressing changes better. Denies any new complaints. Denies nausea vomiting fever sweats chills shortness of breath or chest pain. Objective Exam Vital Signs Date Time Temp Pulse Resp B/P (MAP) Pulse Ox O2 Delivery O2 Flow Rate FiO2 01/08/22 07:30 36.7 85 18 90/60 (70) 98 Room Air 01/08/22 07:11 Room Air 01/08/22 03:55 36.2 88 18 92/64 (73) 96 Room Air 01/08/22 02:16 36.5 01/08/22 00:17 36.5 93 18 106/74 (85) 96 Room Air 01/07/22 20:55 Room Air I & O 01/08/22 07:00 Intake Total 2930 ml Output Total 3850 ml Balance -920 ml Capillary Refill : General Appearance: No Apparent Distress, WD/WN, Chronically ill HEENT: PERRL/EOMI, Moist Mucous Membranes Neck: Full Range of Motion, Normal Inspection Respiratory: Chest Non Tender, No Accessory Muscle Use, No Respiratory Distress Cardiovascular: Regular Rate, Rhythm Gastrointestinal: non tender, soft Extremity: Normal Inspection, Normal Range of Motion, Non Tender, No Calf Tenderness, No Pedal Edema Neurologic/Psychiatric: Alert, Oriented x3, No Motor/Sensory Deficits, Normal Mood/Affect Skin: Warm/Dry, Other (Open left labial wound examined with female nurse. Minimal purulent drainage present same erythema less induration no fluctuance) Lymphatic: No Adenopathy Results Lab Laboratory Tests 01/07/22 20:06: Glucometer 270H 01/08/22 05:21: White Blood Count 10.4, Red Blood Count 4.81, Hemoglobin 13.9, Hematocrit 42, Mean Corpuscular Volume 88, Mean Corpuscular Hemoglobin 29, Mean Corpuscular Hemoglobin Concent 33, Red Cell Distribution Width 11.8, Platelet Count 340, Mean Platelet Volume 9.3, Immature Granulocyte % (Auto) 1, Neutrophils (%) (Auto) 54, Lymphocytes (%) (Auto) 34, Monocytes (%) (Auto) 4, Eosinophils (%) (Auto) 5, Basophils (%) (Auto) 1, Neutrophils # (Auto) 5.7, Lymphocytes # (Auto) 3.5, Monocytes # (Auto) 0.5, Eosinophils # (Auto) 0.6H, Basophils # (Auto) 0.1, Immature Granulocyte # (Auto) 0.1, Sodium Level 138, Potassium Level 4.2, Chloride Level 103, Carbon Dioxide Level 22, Anion Gap 13, Blood Urea Nitrogen 22H, Creatinine 0.68, Estimat Glomerular Filtration Rate 115, BUN/Creatinine Ratio 32, Glucose Level 153H, Calcium Level 9.9, Corrected Calcium 10.4H, Total Bilirubin 0.2, Aspartate Amino Transf (AST/SGOT) 25, Alanine Aminotransferase (ALT/SGPT) 24, Alkaline Phosphatase 83, Total Protein 7.3, Albumin 3.4 01/08/22 10:44: Glucometer 181H 01/08/22 16:37: Glucometer 224H Microbiology 01/03/22 Gram Stain - Final, Complete 01/03/22 Anaerobic Culture - Final, Complete No anaerobes isolated 01/03/22 Surgical Culture - Final, Complete Gram Pos Mixed Bacterial Allison Klebsiella oxytoca Strep agalactiae Group B Enterococcus faecalis Lactobacillus jensenii 01/03/22 MRSA Screen - Final, Complete MRSA not isolated Assessment/Plan Assessment/Plan Assessment/Plan Status post incision and drainage and debridement. Diabetes Tobacco use Patient encouraged tobacco use and controlled diabetes. Continue wound care, continue IV antibiotic therapy. Pain control Likely home tomorrow converting to oral antibiotics. IMTIAZ PETER DO January 08, 2022 18:27
[2022-01-08] MEDS: MICONAZOLE 2% POWDER (DESENEX AF) 90 GM TOP SCH (21:01)
[2022-01-08] MEDS: ENOXAPARIN 40 MG/0.4 ML (LOVENOX) SYR SC SCH (21:01)
[2022-01-09 00:32] VITALS: BP 89/59
[2022-01-09] MEDS: HYDROcodone/APAP 5 MG/325 MG (LORTAB) TAB PO PRN ×2 (01:57→09:58)
[2022-01-09 04:33] VITALS: BP 101/72
[2022-01-09 05:24] LABS: BASOPHILS % (AUTO) 1 % (0-10); EOSINOPHILS % (AUTO) 5 % (0-10); HEMATOCRIT 39 % (35-52); HEMOGLOBIN 12.7 g/dL (11.5-16.0); LYMPHOCYTES % (AUTO) 29 % (12-44); MEAN CORPUSCULAR HEMOGLOBIN 29 pg (25-34); MEAN CORPUSCULAR HGB CONC 33 g/dL (32-36); MEAN CORPUSCULAR VOLUME 89 fL (80-99); MEAN PLATELET VOLUME 9.3 fL (9.0-12.2); MONOCYTES % (AUTO) 6 % (0-12); NEUTROPHILS # (AUTO) 5.8 X 10^3 (1.8-7.8); NEUTROPHILS % (AUTO) 58 % (42-75); PLATELET COUNT 326 10^3/uL (130-400); WHITE BLOOD COUNT 9.9 10^3/uL (4.3-11.0)
[2022-01-09 05:25] LABS: BASOPHILS # (AUTO) 0.1 10^3/uL (0.0-0.1); EOSINOPHILS # (AUTO) 0.4 10^3/uL (0.0-0.3); LYMPHOCYTES # (AUTO) 2.8 X 10^3 (1.0-4.0); MONOCYTES # (AUTO) 0.6 X 10^3 (0.0-1.0)
[2022-01-09 05:59] LABS: POTASSIUM 4.1 MMOL/L (3.6-5.0)
[2022-01-09 06:00] LABS: ALBUMIN 3.1 GM/DL (3.2-4.5); BILIRUBIN,TOTAL 0.2 MG/DL (0.1-1.0); CALCIUM 9.1 MG/DL (8.5-10.1); CREATININE SERUM 0.75 MG/DL (0.60-1.30); TOTAL PROTEIN 6.5 GM/DL (6.4-8.2)
[2022-01-09] MEDS: inSUlin (REGULAR) HUMAN 1 UNIT/0.01 ML (CHARGE PER UNIT) SC SCH ×2 (06:26→11:29)
[2022-01-09] MEDS: inSUlin ASPART (NovoLOG) 1 UNIT/0.01 ML (CHARGE PER UNIT) SC SCH ×2 (06:26→11:29)
--- NOTE | 2022-01-09 06:32 | Progress Note - Hospitalist ---
Subjective HPI/CC On Admission Date Seen by Provider: January 09, 2022 Time Seen by Provider: 10:30 CC: Labial abscess HPI: This is a 36 yr old clinic pt of [facility]. She is newly established with Dr. Lawrence who had to reschedule her appt due to surgery yesterday. She presented with left labial pain and was found to have an abscess status post incision and drainage by Dr. Navarrete. Placed on IV antibiotics. Pt's HgA1C was 15, she hasn't taken her insulin for 2 months. We will assure she gets her insulin called into the pharmacy when discharged. Subjective/Events-last exam Pt is doing really well Ready for discharge Wound care will take care of the dressing changes Sent her insulin to [facility] Checked meds and labs Review of Systems General: Fatigue Objective Exam Vital Signs Vital Signs Date Time Temp Pulse Resp B/P (MAP) Pulse Ox O2 Delivery O2 Flow Rate FiO2 01/09/22 15:18 36.1 93 18 110/65 95 Room Air 0.00 Capillary Refill : General Appearance: No Apparent Distress, WD/WN Respiratory: Lungs Clear Cardiovascular: Regular Rate, Rhythm Neurologic/Psychiatric: Alert, Oriented x3 Results/Procedures Lab Patient resulted labs reviewed. Assessment/Plan Assessment and Plan Assess & Plan/Chief Complaint Assessment: Left labial abscess status post incision and drainage by Dr. Navarrete Diabetes [id number] hemoglobin A1c 15% noncompliant with insulin Smoker Hyperlipidemia Hypertension Plan: IV antibiotics Insulin Pain control 01/06/2022: Increase insulin 01/07/2022: Maintain insulin Ambulate 01/08/2022: Supportive care Sent insulin into pharmacy 01/09/2022: Discharge home Insulin sent Diagnosis/Problems Diagnosis/Problems (1) Labial abscess Status: Acute (2) Insulin dependent diabetes mellitus Status: Chronic REBEKA BEACH DO January 09, 2022 06:32
[2022-01-09 07:39] VITALS: BP 106/61
--- NOTE | 2022-01-09 08:21 | Progress Note - Surgery ---
Subjective Date Seen by a Provider: January 09, 2022 Time Seen by a Provider: 08:21 Subjective/Events-last exam Doing well. Tolerating wound changes. Less erythema. Scant drainage. Denies n/v fever sweats chills shortness of breath or chest pain. Objective Exam Vital Signs Date Time Temp Pulse Resp B/P (MAP) Pulse Ox O2 Delivery O2 Flow Rate FiO2 01/09/22 07:39 36.0 95 18 106/61 (76) 95 Room Air 01/09/22 04:33 36.1 94 18 101/72 (82) 95 Room Air 01/09/22 00:32 36.3 98 20 89/59 (69) 97 Room Air 01/08/22 20:50 Room Air I & O 01/09/22 07:00 Intake Total 2220 ml Balance 2220 ml Capillary Refill : General Appearance: No Apparent Distress, WD/WN, Chronically ill HEENT: PERRL/EOMI, Moist Mucous Membranes Neck: Full Range of Motion, Normal Inspection Respiratory: Lungs Clear, Normal Breath Sounds Cardiovascular: Regular Rate, Rhythm Gastrointestinal: non tender, soft Extremity: Normal Inspection, Normal Range of Motion, Non Tender, No Calf Tenderness, No Pedal Edema Neurologic/Psychiatric: Alert, Oriented x3 Skin: Warm/Dry, Other (Open left labial wound examined with female nurse. scant purulent drainage present less erythema less induration no fluctuance) Lymphatic: No Adenopathy Results Lab Laboratory Tests 01/08/22 10:44: Glucometer 181H 01/08/22 16:37: Glucometer 224H 01/08/22 20:02: Glucometer 184H 01/09/22 05:11: White Blood Count 9.9, Red Blood Count 4.38, Hemoglobin 12.7, Hematocrit 39, Mean Corpuscular Volume 89, Mean Corpuscular Hemoglobin 29, Mean Corpuscular Hemoglobin Concent 33, Red Cell Distribution Width 12.0, Platelet Count 326, Mean Platelet Volume 9.3, Immature Granulocyte % (Auto) 1, Neutrophils (%) (Auto) 58, Lymphocytes (%) (Auto) 29, Monocytes (%) (Auto) 6, Eosinophils (%) (Auto) 5, Basophils (%) (Auto) 1, Neutrophils # (Auto) 5.8, Lymphocytes # (Auto) 2.8, Monocytes # (Auto) 0.6, Eosinophils # (Auto) 0.4H, Basophils # (Auto) 0.1, Immature Granulocyte # (Auto) 0.1, Sodium Level 137, Potassium Level 4.1, Chlo ride Level 104, Carbon Dioxide Level 20L, Anion Gap 13, Blood Urea Nitrogen 29H, Creatinine 0.75, Estimat Glomerular Filtration Rate 105, BUN/Creatinine Ratio 39, Glucose Level 233H, Calcium Level 9.1, Corrected Calcium 9.8, Total Bilirubin 0.2, Aspartate Amino Transf (AST/SGOT) 19, Alanine Aminotransferase (ALT/SGPT) 23, Alkaline Phosphatase 79, Total Protein 6.5, Albumin 3.1L Microbiology 01/03/22 Gram Stain - Final, Complete 01/03/22 Anaerobic Culture - Final, Complete No anaerobes isolated 01/03/22 Surgical Culture - Final, Complete Gram Pos Mixed Bacterial Allison Klebsiella oxytoca Strep agalactiae Group B Enterococcus faecalis Lactobacillus jensenii 01/03/22 MRSA Screen - Final, Complete MRSA not isolated Assessment/Plan Assessment/Plan Assessment/Plan Status post incision and drainage and debridement. Diabetes Tobacco use Patient encouraged tobacco use and controlled diabetes. Continue wound care, continue IV antibiotic therapy. Pain control Home today converting to oral antibiotics. IMTIAZ PETER DO January 09, 2022 08:21
[2022-01-09] MEDS: DOCUSATE SODIUM 100 MG (COLACE) CAP PO SCH (09:15)
[2022-01-09] MEDS: fluCOnazole (DIFLUCAN) 100 MG TAB PO SCH (09:15)
[2022-01-09] MEDS: MICONAZOLE 2% POWDER (DESENEX AF) 90 GM TOP SCH (09:24)
[2022-01-09] MEDS: morphine INJ 4 MG/ML 1 ML (VIAL/SYRINGE) IVP PRN (10:35)
--- NOTE | 2022-01-09 10:48 | Discharge Inst-Simple/Standard ---
Discharge Inst-Standard Discharge Medications New, Converted or Re-Newed RX: Transmitted to Pharmacy Patient Instructions/Follow Up Plan of Care/Instructions/FU: 2 weeks [place] Wound care appointment keep as scheduled. Primary care 1-2 weeks for you diabetes. Activity as Tolerated: Yes Discharge Diet: Regular Diet (diabetic) Other Inst to Patient Follow up Appt: Make appointment for 2 week [place]. Your primary care physician see in 1-2 weeks. Wound care keep all appointments. Instructions: No strenuous activity. May shower, no tub bath or soaking. Use incentive spirometer at home as directed. No Smoking Skin/Wound Care: You are set up with wound care clinic. Keep all appointments and follow their instructions. Symptoms to Report: Appetite Changes, Extremity Discoloration, Numbness/Tingling, Swelling Increased, Bleeding Excessive, Eyesight Changes, Pain Increased, Urine Color Change, Constipation(Persistent), Fever over 101 degree F, Pain/Pressure in chest, Urinating Difficulty, Cough Up/Vomit Blood, Heart Beat Irreg/Pounding, Pain/Pressure in jaw, Vaginal Bleeding Increase, Cramps in feet or legs, Lightheadedness, Pain/Pressure in shoulder, Diarrhea(Persistent), Memory Changes Suddenly, Questions/Concerns, Weight gain consecutive days, Dizziness/Fainting, Nausea/Vomiting, Shortness of Breath, Weight gain over 2 pounds If questions or concerns contact your physician Or seek help at emergency department. IMTIAZ PETER DO January 09, 2022 10:46
[2022-01-09] MEDS ORDERED: LEVO750T39 PO (10:49)
[2022-01-09] MEDS ORDERED: INSU100I14 SQ (11:03)
[2022-01-09 11:39] VITALS: BP 110/65
[2022-01-09 15:18] VITALS: BP 110/65
--- NOTE | 2022-01-11 04:26 | Physician Query Clarification ---
PQ-Debridement Admission/Discharge Admission Date: January 03, 2022 at 11:43 Discharge Date: January 09, 2022 at 15:18 IMTIAZ Huston DO PHYSICIAN RESPONSE History& risk factors: 36 y/o female patient admitted with labial abscess underwent incision, drainage and debridement. Operative report/procedure note reflects the following description: The patient was taken to the operating suite. She was placed in lithotomy position. She was prepped and draped in sterile fashion. Timeout was performed. Small opening in the left labia was present. This was probed and using the tract, skin was then opened up towards the pubic symphysis and then there is also a large pocket traveling down the left labia, which was then opened as well. There was a tract where it was significant purulent material erupted which culture was obtained. All this material was evacuated and debrided until down to clean, healthy tissue. Overall dimensions of the wound were 9 x 3 x 4 cm. Lots of irrigation and suction was performed. Hemostasis was achieved. Wound was then packed with iodoform gauze. The area was washed and dried and sterile bandage was applied. The patient tolerated procedure well without any complications. She was taken to recovery room in stable condition. QUESTION: Please clarify the depth of the debridement. Please clarify if the debridement was excisional or non-excisional. Please document a response in the Progress Notes or Discharge Summary. 1. Level: Skin Subcutaneous tissue Fascia Muscle Bone 2. Type of debridement: Excisional Non-excisional 3. Other, with explanation of the clinical findings 4. Clinically unable to determine PQ Debridement : Date of debridement: January 03, 2022 Level: Subcutaneous Tissue Type: Excisional (with cautery ) In responding to this query, please exercise your independent professional judgment. The purpose of this communication is to more accurately reflect the complexity of your patients condition. The fact that a question is asked does not imply that any particular answer is desired or expected. Thank you for your timely response to this clarification. Requestors name: [ ] Phone # [ ] THIS PHYSICIAN QUERY FORM IS A PERMANENT PART OF THE MEDICAL RECORD [id number] January 11, 2022 04:26 IMTIAZ PETER DO January 11, 2022 07:59
== END 2022-01-09 15:18 | disposition home or self-care (01) | DRG 750 ==
LOC: SDC 07:57 → UNDOADMIN 11:43 → 4TH 11:43 → SDC 11:43 → 4TH 12:50 → UNDODISIN 01-09 15:18
PROVIDERS: ADMIT Surgery; ATTEND Surgery
PROC: 0JBB0ZZ Excision of Perineum Subcutaneous Tissue and Fascia, Open Approach (ICD-10-PCS; principal; 2022-01-03 10:55)
DX: N76.4 Abscess of vulva (principal); F17.210 Nicotine dependence, cigarettes, uncomplicated; E11.65 Type 2 diabetes mellitus with hyperglycemia; E78.5 Hyperlipidemia, unspecified; I10 Essential (primary) hypertension; Z91.14 Patient's other noncompliance with medication regimen; B37.3 Candidiasis of vulva and vagina; J45.909 Unspecified asthma, uncomplicated
CPT/HCPCS: 36415; 80053; 82947; 83036; 85025; 85027; 87070; 87075; 87077; 87081; 87186; 87205; 94664

== ENCOUNTER → 2022-01-14 | Outpatient (CLI) | payer MEDICAID ==
[~2022-01-14] MED LIST changes: +INSU100I29 SQ; +INSU100I51 SQ; +METF-479 PO; +PEN-53 MC
== END ==
LOC: WOUNDCARE 12:42
PROVIDERS: ATTEND Family Medicine
DX: L02.214 Cutaneous abscess of groin (principal); B96.1 Klebsiella pneumoniae [K. pneumoniae] as the cause of diseases classified elsewhere; E11.65 Type 2 diabetes mellitus with hyperglycemia; E11.622 Type 2 diabetes mellitus with other skin ulcer; T65.224A Toxic effect of tobacco cigarettes, undetermined, initial encounter
CPT/HCPCS: 11042

== ENCOUNTER → 2022-01-24 | Outpatient (CLI) | payer MEDICAID | LOC: WOUNDCARE 14:36 | PROVIDERS: ATTEND Family Medicine | DX: L02.214 Cutaneous abscess of groin (principal); B96.1 Klebsiella pneumoniae [K. pneumoniae] as the cause of diseases classified elsewhere; E11.65 Type 2 diabetes mellitus with hyperglycemia; T65.224A Toxic effect of tobacco cigarettes, undetermined, initial encounter; E11.622 Type 2 diabetes mellitus with other skin ulcer; E11.52 Type 2 diabetes mellitus with diabetic peripheral angiopathy with gangrene; I96 Gangrene, not elsewhere classified | CPT/HCPCS: 11042 ==

== ENCOUNTER → 2022-01-31 | Outpatient (CLI) | payer MEDICAID | LOC: WOUNDCARE 14:10 | PROVIDERS: ATTEND Family Medicine | DX: L02.214 Cutaneous abscess of groin (principal); E11.65 Type 2 diabetes mellitus with hyperglycemia; T65.224A Toxic effect of tobacco cigarettes, undetermined, initial encounter; E11.622 Type 2 diabetes mellitus with other skin ulcer; B37.3 Candidiasis of vulva and vagina; E11.52 Type 2 diabetes mellitus with diabetic peripheral angiopathy with gangrene; I96 Gangrene, not elsewhere classified | CPT/HCPCS: 99212 ==